=== PATIENT | female | born 1985 | race Asian ===

== ENCOUNTER 2018-01-18 04:34 | Inpatient (IN) | payer BC, OTHER ==
[~2018-01-18] VITALS: Ht 149.9 cm; Wt 49.9 kg
[2018-01-18 21:00] VITALS: BP 173/99
[2018-01-19] VITALS: BP 159/92
[2018-01-19] MEDS ORDERED: Norco 5mg/325mg tab ORAL PRN (00:15)
[2018-01-19 08:00] VITALS: BP 167/104
[2018-01-19 08:41] LABS: INR 0.9 (0.9-1.1)
[2018-01-19 08:47] LABS: HEMATOCRIT 22.6 % (37.0-47.0); HEMOGLOBIN 7.7 G/DL (12.0-16.0); MEAN CORPUSCULAR VOLUME 85 FL (80-99); PLATELET COUNT 145 K/UL (150-450); RED BLOOD COUNT 2.67 M/UL (4.20-5.40); WHITE BLOOD COUNT 9.2 K/UL (4.8-10.8)
[2018-01-19 08:56] LABS: PHOSPHORUS 6.4 MG/DL (2.5-4.9)
[2018-01-19] MEDS ORDERED: Lisinopril 2.5mg tab ORAL SCH (09:00)
[2018-01-19] MEDS ORDERED: Furosemide 40mg tab ORAL SCH (09:00)
[2018-01-19] MEDS: dilTIAZem HCl CD 240mg cap ORAL SCH (09:25)
[2018-01-19] MEDS ORDERED: LISINOPRIL5 MG ORAL (11:43)
[2018-01-19] MEDS ORDERED: CARTIA XT240 MG ORAL (11:43)
[2018-01-19] MEDS ORDERED: COREG3.125 MG ORAL (11:43)
[2018-01-19] MEDS ORDERED: FUROSEMIDE40 MG ORAL (11:43)
[2018-01-19] MEDS ORDERED: MYFORTIC360 MG PO (11:43)
[2018-01-19] MEDS ORDERED: PLAQUENIL200 MG ORAL (11:43)
--- NOTE | 2018-01-19 11:50 | History & Physical ---
History and Physical History & Physicial Dictated for Int Med-Dr Skelton no. [id number]. JUVE DUBOIS Jan 19, 2018 11:50
[2018-01-19 12:00] VITALS: BP_SYST 110; BP_SYST 175; BP_DIAS 104; BP_DIAS 110
--- NOTE | 2018-01-19 15:10 | Consultation ---
Consult Note Consult Note 32 y old lupus nephritis CKD transferred from [place] [id number] Cr 3.6 Hgb 7.4 after one unit transfusion in [place] Assessment/Plan likely acute on chronic renal failure Plan: long discussion with patient and boy friend due second Unit transfusion waiting today labs aim to stablize Hgb and Renal function discussed with ITZ ARNETT Jan 19, 2018 15:10
[2018-01-19] MEDS ORDERED: HydrALAZINE 25mg tab ORAL PRN (15:15)
[2018-01-19 15:37] LABS: PHOSPHORUS 6.7 MG/DL (2.5-4.9)
[2018-01-19 15:54] LABS: HEMATOCRIT 20.7 % (37.0-47.0); MEAN CORPUSCULAR VOLUME 83 FL (80-99); PLATELET COUNT 136 K/UL (150-450); RED BLOOD COUNT 2.48 M/UL (4.20-5.40); RED CELL DISTRIBUTION WIDTH 14.4 % (11.6-14.8); WHITE BLOOD COUNT 6.2 K/UL (4.8-10.8)
[2018-01-19 16:00] VITALS: BP 163/100
[2018-01-19 16:08] LABS: ANION GAP 10 mmol/L (5-15); BLOOD UREA NITROGEN 91 mg/dL (7-18); CARBON DIOXIDE 16 MMOL/L (21-32); CHLORIDE 112 MMOL/L (98-107); CREATININE 4.3 MG/DL (0.55-1.30); POTASSIUM 5.6 MMOL/L (3.5-5.1); SODIUM 138 MMOL/L (136-145)
[2018-01-19 16:23] LABS: ALANINE AMINOTRANSFERASE 10 U/L (12-78); ALBUMIN 2.2 G/DL (3.4-5.0); ALBUMIN/GLOBULIN RATIO 0.7 (1.0-2.7); ALKALINE PHOSPHATASE 65 U/L (46-116); ASPARTATE AMINO TRANSFERASE 14 U/L (15-37); BILIRUBIN,TOTAL 0.2 MG/DL (0.2-1.0); FERRITIN 150 NG/ML (8-388); LACTATE DEHYDROGENASE 271 U/L (81-234)
--- NOTE | 2018-01-19 16:44 | Cardiac Electrophysiology PN ---
Subjective Subjective [id number] Objective Last 24 Hour Vital Signs Date Time Temp Pulse Resp B/P (MAP) Pulse Ox O2 Delivery O2 Flow Rate FiO2 01/19/18 12:00 97.8 73 20 110/104 97 Room Air 97.8 01/19/18 09:25 74 167/104 01/19/18 09:24 167/104 01/19/18 08:00 97.7 74 20 167/104 97 Room Air 97.7 01/19/18 08:00 77 01/19/18 04:00 76 01/19/18 00:00 70 01/19/18 00:00 98.2 90 18 159/92 96 Room Air 98.2 01/18/18 21:00 82 01/18/18 21:00 98.4 89 20 173/99 98 Room Air 98.4 Intake and Output 01/18/18 01/19/18 19:00 07:00 Intake Total 100 ml Balance 100 ml Intake Oral 100 ml Laboratory Tests Test 01/19/18 06:50 01/19/18 15:30 White Blood Count 9.2 K/UL (4.8-10.8) 6.2 K/UL (4.8-10.8) Red Blood Count 2.67 M/UL (4.20-5.40) L 2.48 M/UL (4.20-5.40) L Hemoglobin 7.7 G/DL (12.0-16.0) L 7.0 G/DL (12.0-16.0) L Hematocrit 22.6 % (37.0-47.0) L 20.7 % (37.0-47.0) L Mean Corpuscular Volume 85 FL (80-99) 83 FL (80-99) Mean Corpuscular Hemoglobin 28.9 PG (27.0-31.0) 28.0 PG (27.0-31.0) Mean Corpuscular Hemoglobin Concent 34.2 G/DL (32.0-36.0) 33.6 G/DL (32.0-36.0) Red Cell Distribution Width 13.0 % (11.6-14.8) 14.4 % (11.6-14.8) Platelet Count 145 K/UL (150-450) L 136 K/UL (150-450) L Mean Platelet Volume 5.3 FL (6.5-10.1) L 5.1 FL (6.5-10.1) L Neutrophils (%) (Auto) % (45.0-75.0) % (45.0-75.0) Lymphocytes (%) (Auto) % (20.0-45.0) % (20.0-45.0) Monocytes (%) (Auto) % (1.0-10.0) % (1.0-10.0) Eosinophils (%) (Auto) % (0.0-3.0) % (0.0-3.0) Basophils (%) (Auto) % (0.0-2.0) % (0.0-2.0) Differential Total Cells Counted 100 Neutrophils % (Manual) 69 % (45-75) Lymphocytes % (Manual) 16 % (20-45) L Monocytes % (Manual) 8 % (1-10) Eosinophils % (Manual) 7 % (0-3) H Basophils % (Manual) 0 % (0-2) Band Neutrophils 0 % (0-8) Platelet Estimate Decreased L Platelet Morphology Normal Hypochromasia 1+ Anisocytosis 1+ Haptoglobin Pending Prothrombin Time 9.4 SEC (9.30-11.50) Prothromb Time International Ratio 0.9 (0.9-1.1) Activated Partial Thromboplast Time 28 SEC (23-33) Fibrinogen Pending D-Dimer 2.35 mg/L FEU (0.00-0.49) H Uric Acid 9.6 MG/DL (2.6-7.2) H 9.7 MG/DL (2.6-7.2) H Phosphorus Level 6.7 MG/DL (2.5-4.9) H Magnesium Level 2.7 MG/DL (1.8-2.4) H Iron Level Pending Unsaturated Iron Binding Pending Soluble Transferrin Receptor Pending Troponin I 0.104 ng/mL (0.000-0.056) Pro-B-Type Natriuretic Peptide 4607 pg/mL (0-125) H Methylmalonic Acid Pending Hepatitis A IgM Antibody Pending Hepatitis B Surface Antigen Pending Hepatitis B Core IgM Antibody Pending Hepatitis C Antibody Pending HIV (1&2) Antibody Rapid Negative (NEGATIVE) Reticulocyte Count Pending Sodium Level 138 MMOL/L (136-145) Potassium Level 5.6 MMOL/L (3.5-5.1) H Chloride Level 112 MMOL/L (98-107) H Carbon Dioxide Level 16 MMOL/L (21-32) L Anion Gap 10 mmol/L (5-15) Blood Urea Nitrogen 91 mg/dL (7-18) H Creatinine 4.3 MG/DL (0.55-1.30) H Estimat Glomerular Filtration Rate 11.8 mL/min (>60) Glucose Level 102 MG/DL (74-106) Calcium Level 7.0 MG/DL (8.5-10.1) L Ferritin 150 NG/ML (8-388) Total Bilirubin 0.2 MG/DL (0.2-1.0) Aspartate Amino Transf (AST/SGOT) 14 U/L (15-37) L Alanine Aminotransferase (ALT/SGPT) 10 U/L (12-78) L Alkaline Phosphatase 65 U/L (46-116) Lactate Dehydrogenase 271 U/L (81-234) H Total Protein 5.4 G/DL (6.4-8.2) L Albumin 2.2 G/DL (3.4-5.0) L Globulin 3.2 g/dL Albumin/Globulin Ratio 0.7 (1.0-2.7) L Vitamin B12 Level 437 PG/ML (193-986) Folate 12.5 NG/ML (8.6-58.9) Thyroid Stimulating Hormone (TSH) 2.482 uiU/mL (0.358-3.740) CASIE CABRAL Jan 19, 2018 16:43
[2018-01-19 16:51] LABS: % IRON SATURATION 22 % (15-50); IRON 35 ug/dL (50-175); TOTAL IRON BINDING CAPACITY 162 ug/dL (250-450)
[2018-01-19 16:53] LABS: APPEARANCE,URINE CLEAR; BILIRUBIN, URINE NEGATIVE (NEGATIVE); COLOR,URINE PALE YELLOW; GLUCOSE, URINE (UA) NEGATIVE (NEGATIVE); KETONES,URINE NEGATIVE (NEGATIVE); LEUKOCYTE ESTERASE ,URINE NEGATIVE (NEGATIVE); NITRITE,URINE NEGATIVE (NEGATIVE); PH,URINE 5 (4.5-8.0); PROTEIN,URINE 4+ (NEGATIVE); UROBILINOGEN,URINE NORMAL MG/DL (0.0-1.0)
[2018-01-19 17:01] VITALS: BP 163/100
--- NOTE | 2018-01-19 17:31 | History and Physical Report ---
DATE OF ADMISSION: 01/18/2018 CHIEF COMPLAINT: The patient is a 32-year-old female with history of systemic lupus erythematosus who presents with chief complaint of "low blood count". HISTORY OF PRESENT ILLNESS: The patient has a history of systemic lupus. The patient has a history of anemia. 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 According to the patient, she has felt increased shortness of breath over the last three weeks. The patient presented to [facility] on 01/18/2018. The patient was found to have hemoglobin of 5. The patient left against medical advice because "I did not feel right there." The patient then went to [facility]. Upon arrival at [facility], the patient was found to have hemoglobin of 5 and a potassium of 7. The patient was given Kayexalate. 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 The patient was transfused one unit of packed RBCs at [facility]. The patient was transferred to [facility] for insurance purposes. The patient was admitted for severe anemia to rule out autoimmune hemolytic anemia. The patient was also admitted with hyperkalemia. PAST MEDICAL HISTORY: Significant for 1. Systemic lupus erythematosus. 2. Hypertension. 3. Anemia. 4. History of renal failure. 5. Transfusion of packed RBCs x2 in the past. PAST SURGICAL HISTORY: The patient denies. CURRENT MEDICATIONS: 1. Iron sulfate 325 mg p.o. daily. 2. Lisinopril 5 mg p.o. daily. 3. Lasix 40 mg p.o. daily. 4. Coreg 12.5 mg p.o. twice daily. 5. Plaquenil 200 mg p.o. twice daily. 6. Diltiazem 240 mg p.o. daily. 7. Myfortic 360 mg two tablets p.o. twice daily. 8. . ALLERGIES: Vicodin, which causes nausea. SOCIAL HISTORY: The patient has a long time male partner. The patient denies tobacco or alcohol use. The patient is currently unemployed and is applying for disability. REVIEW OF SYSTEMS: CONSTITUTIONAL: The patient denies weight loss or weight gain. The patient denies fevers or chills. HEENT: The patient denies ear or throat pain. The patient denies headache. CARDIOVASCULAR: The patient denies palpitations or chest pain. CHEST: The patient denies wheezes. The patient complains of shortness of breath as above. ABDOMEN: The patient complains of increasing abdominal distention. The patient denies nausea, vomiting, diarrhea, or constipation. GENITOURINARY: The patient denies dysuria or increased frequency of urination. NEUROMUSCULAR: The patient denies seizures or generalized weakness. PHYSICAL EXAMINATION: GENERAL: The patient is well-developed and well-nourished female, no apparent distress. VITAL SIGNS: Temperature 97.7 to 98.4 degrees, respirations 20, pulse 82 to 90, and blood pressure 159 to 173 over 90 to 104. HEENT: Eyes, pupils are equal and responsive to light and accommodation. Extraocular movements are intact. NECK: Supple without lymphadenopathy. CHEST: Lungs are clear to auscultation bilaterally without wheezes or rales. CARDIOVASCULAR: Regular rhythm and rate. S1 and S2 normal without murmurs, rubs, or gallops. ABDOMEN: Soft, slightly distended with positive bowel sounds. No evidence of hepatosplenomegaly. Currently, no rebound or guarding noted. There is no fluid wave noted. EXTREMITIES: Negative for clubbing, cyanosis, or edema. NEUROLOGIC: Cranial nerves II through XII are grossly intact without focal deficits. Motor strength is 5/5 bilaterally. Deep tendon reflexes are 2+ plantar. LABORATORY AND DIAGNOSTIC DATA: Laboratory studies from [place], WBC 6.4, hemoglobin 5.3, hematocrit 15.7, and platelets 182,000. Sodium 133, potassium 6.0, chloride 113, CO2 13, BUN 86, creatinine 3.67, and glucose 117. Liver function tests within normal limits. Chest x-ray from [place] was reported as no acute disease. ASSESSMENT: This is a 32-year-old female 1. Shortness of breath. 2. Anemia. 3. Hyperkalemia. 4. Systemic lupus erythematosus. 5. Hypertension. 6. Acute on chronic renal failure. TREATMENT: 1. Shortness of breath/anemia. A Hematology/Oncology consultation obtained with Dr. Street. The patient received one unit of packed RBCs at [place]. A second unit of packed RBCs is currently being processed in the laboratory. The patient has a difficult match. The patient has history of alloantibodies. 2. Systemic lupus erythematosus. Continue Myfortic as above. 3. Hyperkalemia. The patient received Kayexalate at [place]. A repeat BMP is pending. 4. Hypertension. Continue Prinivil and carvedilol as above. Continue diltiazem as above. 5. Systemic lupus erythematosus. Continue 6. Renal failure. A Nephrology consultation has been obtained with Dr. Garnett. This may be secondary to lupus nephritis. Lv Murillo M.D. DR: CAPRI JOB#: [id number] CC:
[2018-01-19 20:00] VITALS: BP 168/100
[2018-01-19] MEDS ORDERED: Sodium Polystyrene Sulfonate 15gm Powder ORAL ONE (20:30)
[2018-01-19] MEDS ORDERED: Carvedilol 12.5mg tab ORAL SCH (21:00)
--- NOTE | 2018-01-20 00:31 | Consultation ---
DATE OF CONSULTATION: 01/19/2018 HEMATOLOGY/ONCOLOGY CONSULTATION CONSULTING PHYSICIAN: Agapito Street M.D. REQUESTING PHYSICIAN: Lv Murillo M.D. REASON FOR CONSULTATION: Evaluation of severe anemia, leukopenia, and anemia. IDENTIFYING DATA: Dear Dr. Murillo, The patient is a pleasant 32-year-old female who is a direct admission from [facility] due to hemoglobin History and Physical is to follow. ASSESSMENT AND RECOMMENDATIONS: 1. Anemia of chronic disease. Obtain anemia workup, B12 and folic acid, TSH, transferrin, TIBC. Hemoglobin goal above 7. 2. Leukopenia. Obtain hepatitis panel and HIV as well as ultrasound of the abdomen to rule out hepatosplenomegaly with cirrhosis. 3. Elevated troponin. Closely monitor. Consider Cardiology evaluation. 4. Thrombocytopenia. Again, consider hepatitis panel and HIV and abdominal ultrasound. 5. Hypomagnesemia as well as hyperphosphatemia. Obtain BMP. Check the patient's creatinine to see if there is any evidence of kidney disease. 6. Elevated D-dimer, potentially due to creatinine elevation. Continue to obtain BMP. 7. Hypertension, currently is on Coreg. Continue every 12 hours as needed. 8. Elevated lupus, currently is on Plaquenil as well as Myfortic. Continue to monitor. explain thrombocytopenia as well as anemia. 9. Appreciate consultation. Agapito Street M.D. DR: MATEO JOB#: [id number] CC:
--- NOTE | 2018-01-20 05:09 | Consultation ---
DATE OF CONSULTATION: 01/19/2018 NOTE: POOR AUDIO CARDIOLOGY CONSULTATION CONSULTING PHYSICIAN: Alfred Kennedy M.D. REFERRING PHYSICIAN: Hamzah Skelton M.D. REASON FOR CONSULTATION: Accelerated hypertension. HISTORY OF PRESENT ILLNESS: The patient is a 32-year-old lady with history of systemic lupus erythematosus, on CellCept and Plaquenil as well as hypertension and anemia, presented to the ER at [facility] with weakness and shortness of breath and was found to have severe anemia with suspected autoimmune hemolysis. The patient's creatinine 3.5 and 3.6. The patient was then transferred from [place] to [facility] as the patient is not a [place] member. The patient's blood pressure was as high as 190s and a Cardiology consultation was obtained for further evaluation. PAST MEDICAL HISTORY: 1. Hypertension. 2. Systemic lupus erythematosus. 3. Anemia. FAMILY HISTORY: Noncontributory. SOCIAL HISTORY: She lives at home. Does not smoke or drink alcohol. REVIEW OF SYSTEMS: Performed and was negative other than what was mentioned in the history of present illness. PHYSICAL EXAMINATION: VITAL SIGNS: Blood pressure 160/104, pulse 73, respirations 18, and temperature 97.8. HEAD AND NECK: Showed no JVD. LUNGS: Clear. CARDIOVASCULAR: Shows regular S1 and S2 with no gallop or murmur. ABDOMEN: Soft and nontender. EXTREMITIES: No pitting edema. LABORATORY DATA: Her labs show white count of 6.2, hemoglobin 7, hematocrit 20, and platelet count is 136. Sodium is 138, potassium is 5.6, BUN of 91, creatinine 4.3, and glucose of 102. Calcium is 7. Troponin is 0.104. Previous troponin was . BNP is 4607. ASSESSMENT AND PLAN: 1. Troponin leak. This is likely due to the patient's renal failure and severe anemia. The patient does not have any chest pain or shortness of breath. Continue to treat the patient medically. Coreg ____ increased the dose to 6.25 mg b.i.d. The patient is also on Cardizem CD 240 mg daily and lisinopril 20 mg daily. 2. Accelerated hypertension, likely due to renal failure. Again increase the Coreg, continue hydralazine and continue Cardizem 240 mg daily and lisinopril 20 mg daily. I will add p.r.n. hydralazine to her medical regimen. An echocardiogram will also be ordered for further evaluation and management. 3. Hyperkalemia due to renal failure. 4. Renal failure. Further evaluation by Dr. Garnett. The patient has never been on dialysis. 5. Severe anemia. The patient received one unit of blood transfusion second unit as the patient has probably autoimmune anemia. Thank you very much Dr. Skelton for allowing me to participate in the care of this patient. Please do not hesitate to contact for any questions regarding my evaluation. Alfred Kennedy M.D. DR: LINDSAY JOB#: [id number] CC:
[2018-01-20 08:00] VITALS: BP 186/113
[2018-01-20 08:47] LABS: HEMATOCRIT 20.7 % (37.0-47.0); MEAN CORPUSCULAR VOLUME 84 FL (80-99); PLATELET COUNT 127 K/UL (150-450); RED BLOOD COUNT 2.46 M/UL (4.20-5.40); RED CELL DISTRIBUTION WIDTH 13.6 % (11.6-14.8); WHITE BLOOD COUNT 7.7 K/UL (4.8-10.8)
[2018-01-20 08:56] LABS: HEMOGLOBIN 6.9 G/DL (12.0-16.0)
[2018-01-20 09:07] LABS: ANION GAP 12 mmol/L (5-15); BLOOD UREA NITROGEN 93 mg/dL (7-18); CALCIUM 6.9 MG/DL (8.5-10.1); CARBON DIOXIDE 14 MMOL/L (21-32); CHLORIDE 111 MMOL/L (98-107); CHOLESTEROL 186 MG/DL (< 200); CREATININE 4.2 MG/DL (0.55-1.30); HDL CHOLESTEROL 49 MG/DL (40-60); POTASSIUM 5.7 MMOL/L (3.5-5.1); SODIUM 137 MMOL/L (136-145); TRIGLYCERIDES 142 MG/DL (30-150)
[2018-01-20 09:10] LABS: CKMB < 0.5 NG/ML (0.0-3.6); CREATINE KINASE 39 U/L (26-308)
[2018-01-20] MEDS: dilTIAZem HCl CD 240mg cap ORAL SCH (09:38)
[2018-01-20] MEDS ORDERED: HydrALAZINE 50mg tab ORAL SCH (10:00)
[2018-01-20] MEDS: Carvedilol 25mg Tab ORAL SCH ×2 (10:25→20:21)
[2018-01-20] MEDS ORDERED: Sodium Polystyrene Sulfonate 15gm Powder ORAL ONE (10:30)
--- NOTE | 2018-01-20 11:27 | Diagnostic Imaging Report ---
Indication: Abnormal liver function tests and renal function tests, hyperkalemia Technique: Pendleton-scale and duplex images of the upper abdomen were obtained Comparison: none Findings: There is a small amount of ascites fluid present. There are bilateral pleural effusions. Gallbladder demonstrates 2 or 3 nonmobile mural protrusions which probably represent tiny polyps. No definite gallstones. No wall thickening nor pericholecystic fluid. Sonographic Cardoza's sign is negative. Common bile duct measures 3 mm in diameter. No intrahepatic biliary ductal dilatation. Liver demonstrates normal echogenicity, no focal abnormality. Portal vein and hepatic veins are patent. Pancreas is unremarkable. Spleen demonstrates calcifications, and is otherwise unremarkable. Left kidney measures 11 cm in length. Right kidney measures 13 cm length. Both kidneys demonstrate mildly increased echogenicity. Since there is no hydronephrosis on the right. There is mild fullness to the left renal collecting system. There is a tiny right renal cyst in the upper pole. The bladder contains a small amount of urine. Non-aneurysmal abdominal aorta . Impression: Small gallbladder polyps. 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
[2018-01-20 12:00] VITALS: BP 192/114
[2018-01-20] MEDS: Docusate 100mg cap ORAL SCH ×2 (13:00→17:49)
[2018-01-20] MEDS: cloNIDine 0.2mg Tab ORAL PRN ×2 (14:23→19:02)
--- NOTE | 2018-01-20 14:56 | Cardiac Electrophysiology PN ---
Assessment/Plan Assessment/Plan 1. Troponin leak. This is likely due to the patient's renal failure and severe anemia. The patient does not have any chest pain or shortness of breath. Continue Coreg 25 mg b.i.d. and Cardizem CD 240 mg daily 2. Accelerated hypertension, likely due to renal failure. Coreg increased to 25 bid, hydralazine DCed for possible allergy per pt. On Cardizem 240 mg daily and start Clonidine 0.2 tid. Echocardiogram still pending. DC Amlodipine as patient already on Cardizem 3. Hyperkalemia due to renal failure.Lisinopril was DCed 4. Renal failure. Further evaluation by Dr. Garnett. 5. Severe anemia. The patient received one unit of blood transfusion DW RN boyfriend at bedside. Subjective Subjective Feeling better. BP was high earlier.Refusing Hydralazine. Objective Last 24 Hour Vital Signs Date Time Temp Pulse Resp B/P (MAP) Pulse Ox O2 Delivery O2 Flow Rate FiO2 01/20/18 14:23 197/115 01/20/18 12:00 86 01/20/18 12:00 97.7 80 18 192/114 97 Room Air 97.7 01/20/18 10:25 81 186/113 01/20/18 10:00 186/113 01/20/18 09:38 81 186/113 01/20/18 08:00 71 01/20/18 08:00 96.6 81 18 186/113 96 Room Air 96.6 01/20/18 04:00 66 01/20/18 00:00 75 01/19/18 21:16 86 163/100 01/19/18 20:00 78 01/19/18 20:00 97.9 84 20 168/100 98 Room Air 97.9 01/19/18 16:00 86 01/19/18 16:00 97.6 72 18 163/100 100 Room Air 97.6 Intake and Output 01/19/18 01/20/18 19:00 07:00 Intake Total 480 ml Balance 480 ml Intake Oral 480 ml # Voids 3 Laboratory Tests Test 01/19/18 15:30 01/19/18 16:00 01/20/18 07:50 01/20/18 09:30 White Blood Count 6.2 K/UL (4.8-10.8) 7.7 K/UL (4.8-10.8) Red Blood Count 2.48 M/UL (4.20-5.40) L 2.46 M/UL (4.20-5.40) L Hemoglobin 7.0 G/DL (12.0-16.0) L 6.9 G/DL (12.0-16.0) *L Hematocrit 20.7 % (37.0-47.0) L 20.7 % (37.0-47.0) L Mean Corpuscular Volume 83 FL (80-99) 84 FL (80-99) Mean Corpuscular Hemoglobin 28.0 PG (27.0-31.0) 28.0 PG (27.0-31.0) Mean Corpuscular Hemoglobin Concent 33.6 G/DL (32.0-36.0) 33.3 G/DL (32.0-36.0) Red Cell Distribution Width 14.4 % (11.6-14.8) 13.6 % (11.6-14.8) Platelet Count 136 K/UL (150-450) L 127 K/UL (150-450) L Mean Platelet Volume 5.1 FL (6.5-10.1) L 5.9 FL (6.5-10.1) L Neutrophils (%) (Auto) % (45.0-75.0) % (45.0-75.0) Lymphocytes (%) (Auto) % (20.0-45.0) % (20.0-45.0) Monocytes (%) (Auto) % (1.0-10.0) % (1.0-10.0) Eosinophils (%) (Auto) % (0.0-3.0) % (0.0-3.0) Basophils (%) (Auto) % (0.0-2.0) % (0.0-2.0) Reticulocyte Count 2.2 % (0.0-2.0) H Fibrinogen 460 mg/dL (200-400) H Sodium Level 138 MMOL/L (136-145) 137 MMOL/L (136-145) Potassium Level 5.6 MMOL/L (3.5-5.1) H 5.7 MMOL/L (3.5-5.1) H Chloride Level 112 MMOL/L (98-107) H 111 MMOL/L (98-107) H Carbon Dioxide Level 16 MMOL/L (21-32) L 14 MMOL/L (21-32) L Anion Gap 10 mmol/L (5-15) 12 mmol/L (5-15) Blood Urea Nitrogen 91 mg/dL (7-18) H 93 mg/dL (7-18) H Creatinine 4.3 MG/DL (0.55-1.30) H 4.2 MG/DL (0.55-1.30) H Estimat Glomerular Filtration Rate 11.8 mL/min (>60) 12.1 mL/min (>60) Glucose Level 102 MG/DL (74-106) 85 MG/DL (74-106) Uric Acid 9.7 MG/DL (2.6-7.2) H Calcium Level 7.0 MG/DL (8.5-10.1) L 6.9 MG/DL (8.5-10.1) L Ferritin 150 NG/ML (8-388) Total Bilirubin 0.2 MG/DL (0.2-1.0) Aspartate Amino Transf (AST/SGOT) 14 U/L (15-37) L Alanine Aminotransferase (ALT/SGPT) 10 U/L (12-78) L Alkaline Phosphatase 65 U/L (46-116) Lactate Dehydrogenase 271 U/L (81-234) H Total Protein 5.4 G/DL (6.4-8.2) L Albumin 2.2 G/DL (3.4-5.0) L Globulin 3.2 g/dL Albumin/Globulin Ratio 0.7 (1.0-2.7) L Vitamin B12 Level 437 PG/ML (193-986) Folate 12.5 NG/ML (8.6-58.9) Thyroid Stimulating Hormone (TSH) 2.482 uiU/mL (0.358-3.740) 3.579 uiU/mL (0.358-3.740) Urine Color Pale yellow Urine Appearance Clear Urine pH 5 (4.5-8.0) Urine Specific [place] 1.015 (1.005-1.035) Urine Protein 4+ (NEGATIVE) H Urine Glucose (UA) Negative (NEGATIVE) Urine Ketones Negative (NEGATIVE) Urine Occult Blood 4+ (NEGATIVE) H Urine Nitrite Negative (NEGATIVE) Urine Bilirubin Negative (NEGATIVE) Urine Urobilinogen Normal MG/DL (0.0-1.0) Urine Leukocyte Esterase Negative (NEGATIVE) Urine RBC 2-4 /HPF (0 - 2) H Urine WBC 0-2 /HPF (0 - 2) Urine Squamous Epithelial Cells Few /LPF (NONE/OCC) Urine Bacteria Few /HPF (NONE) Urine Random Sodium 26 mmol/L (20-110) Differential Total Cells Counted 100 Neutrophils % (Manual) 66 % (45-75) Lymphocytes % (Manual) 23 % (20-45) Monocytes % (Manual) 5 % (1-10) Eosinophils % (Manual) 5 % (0-3) H Basophils % (Manual) 1 % (0-2) Band Neutrophils 0 % (0-8) Platelet Estimate Decreased L Platelet Morphology Normal Hypochromasia 1+ Total Creatine Kinase 39 U/L (26-308) Creatine Kinase MB < 0.5 NG/ML (0.0-3.6) Creatine Kinase MB Relative Index Troponin I 0.094 ng/mL (0.000-0.056) Pro-B-Type Natriuretic Peptide 4367 pg/mL (0-125) H Triglycerides Level 142 MG/DL (30-150) Cholesterol Level 186 MG/DL (< 200) LDL Cholesterol 78 mg/dL (<100) HDL Cholesterol 49 MG/DL (40-60) Cholesterol/HDL Ratio 3.8 (3.3-4.4) Urine Eosinophils Few Stool Occult Blood Negative (NEGATIVE) Objective HEAD AND NECK: Showed no JVD. LUNGS: Clear. CARDIOVASCULAR: Shows regular S1 and S2 with no gallop or murmur. ABDOMEN: Soft and nontender. EXTREMITIES: No pitting edema. Alfred Kennedy MD Jan 20, 2018 14:56
[2018-01-20 16:00] VITALS: BP 168/106
--- NOTE | 2018-01-20 16:35 | Nephrology Progress Note ---
Assessment/Plan Problem List: (1) Severe anemia (2) Renal failure Assessment: likely acute on chronic (3) Elevated troponin (4) Hyperkalemia (5) Systemic lupus erythematosus Assessment patient weak and pale- BP OOC Refused Hydralazine and took Clonidine due for blood transfusion has not taken her Kayexelate fully Boy freind at the bed side asking for steroid treatment I am not sure if an active lupus relaps and nephritis is going on UA not Nephritic ! . Plan discussed with Laura Murillo and Sammy suggest: Rheumatology eval- second Renal opinion- monitor renal parameters check CRP Keep BP and BS in check start IV Iron and SQ EPO after transfusion biopsy results from CS discussed with patient and Bot Friend and RN Subjective ROS Limited/Unobtainable: No Constitutional: Reports: malaise, other - complains of swelling around belly and bloating Objective Objective Last 24 Hour Vital Signs Date Time Temp Pulse Resp B/P (MAP) Pulse Ox O2 Delivery O2 Flow Rate FiO2 01/20/18 14:23 197/115 01/20/18 12:00 86 01/20/18 12:00 97.7 80 18 192/114 97 Room Air 97.7 01/20/18 10:25 81 186/113 01/20/18 10:00 186/113 01/20/18 09:38 81 186/113 01/20/18 08:00 71 01/20/18 08:00 96.6 81 18 186/113 96 Room Air 96.6 01/20/18 04:00 66 01/20/18 00:00 75 01/19/18 21:16 86 163/100 01/19/18 20:00 78 01/19/18 20:00 97.9 84 20 168/100 98 Room Air 97.9 Intake and Output 01/19/18 01/20/18 19:00 07:00 Intake Total 480 ml Balance 480 ml Intake Oral 480 ml # Voids 3 Current Medications Medications (Trade) Dose Ordered Sig/Gisella Route PRN Reason Start Time Stop Time Status Last Admin Dose Admin Acetaminophen (Tylenol) 650 mg Q6H PRN ORAL Mild Pain/Temp > 100.5 01/19/18 00:15 02/18/18 00:14 Acetaminophen/ Hydrocodone Bitart ([place] 5/325) 1 tab Q6H PRN ORAL Moderate Pain (Pain Scale 4-6) 01/19/18 00:15 01/26/18 00:14 Carvedilol (Coreg) 25 mg EVERY 12 HOURS ORAL 01/20/18 10:00 02/19/18 09:59 01/20/18 10:25 Clonidine HCl (Catapres tab) 0.2 mg EVERY 8 HOURS ORAL 01/20/18 22:00 02/19/18 21:59 Clonidine HCl (Catapres tab) 0.2 mg Q2H PRN ORAL SBP>170 01/20/18 13:00 02/19/18 12:59 01/20/18 14:23 Diltiazem HCl (Cardizem CD) 240 mg DAILY ORAL 01/19/18 09:00 02/18/18 08:59 01/20/18 09:38 Docusate Sodium (Colace) 100 mg THREE TIMES A DAY ORAL 01/20/18 13:00 02/19/18 12:59 Hydroxychloroquine Sulfate (Plaquenil) 200 mg TWICE A DAY ORAL 01/19/18 09:00 02/18/18 08:59 01/20/18 09:38 Ondansetron HCl (Zofran) 4 mg Q4HR PRN IVP Nausea & Vomiting 01/19/18 00:15 02/18/18 00:14 Laboratory Tests 01/20/18 07:50: White Blood Count 7.7, Red Blood Count 2.46L, Hemoglobin 6.9*L, Hematocrit 20.7L , Mean Corpuscular Volume 84, Mean Corpuscular Hemoglobin 28.0, Mean Corpuscular Hemoglobin Concent 33.3, Red Cell Distribution Width 13.6, Platelet Count 127L, Mean Platelet Volume 5.9L, Neutrophils (%) (Auto) , Lymphocytes (%) (Auto) , Monocytes (%) (Auto) , Eosinophils (%) (Auto) , Basophils (%) (Auto) , Differential Total Cells Counted 100, Neutrophils % (Manual) 66, Lymphocytes % ( Manual) 23, Monocytes % (Manual) 5, Eosinophils % (Manual) 5H, Basophils % ( Manual) 1, Band Neutrophils 0, Platelet Estimate DecreasedL, Platelet Morphology Normal, Hypochromasia 1+, Sodium Level 137, Potassium Level 5.7H, Chloride Level 111H, Carbon Dioxide Level 14L, Anion Gap 12, Blood Urea Nitrogen 93H, Creatinine 4.2H, Estimat Glomerular Filtration Rate 12.1, Glucose Level 85, Calcium Level 6.9L, Total Creatine Kinase 39, Creatine Kinase MB < 0.5 , Creatine Kinase MB Relative Index , Troponin I 0.094H, Pro-B-Type Natriuretic Peptide 4367H, Triglycerides Level 142, Cholesterol Level 186, LDL Cholesterol 78, HDL Cholesterol 49, Cholesterol/HDL Ratio 3.8, Thyroid Stimulating Hormone ( TSH) 3.579 01/20/18 09:30: Urine Eosinophils Few, Stool Occult Blood Negative Height (Feet): 4 Height (Inches): 11.00 Weight (Pounds): 110 General Appearance: no apparent distress, lethargic, other - pale Cardiovascular: normal rate Respiratory/Chest: decreased breath sounds Abdomen: soft ITZ TAVAREZ Jan 20, 2018 16:35
--- NOTE | 2018-01-20 16:57 | Internal Med Progress Note ---
Subjective Date of Service: Jan 20, 2018 Physician Name Lv Dubois Attending Physician Hamzah Skelton MD Current Medications Medications (Trade) Dose Ordered Sig/Gisella Route PRN Reason Start Time Stop Time Status Last Admin Dose Admin Acetaminophen (Tylenol) 650 mg Q6H PRN ORAL Mild Pain/Temp > 100.5 01/19/18 00:15 02/18/18 00:14 Acetaminophen/ Hydrocodone Bitart ([place] 5/325) 1 tab Q6H PRN ORAL Moderate Pain (Pain Scale 4-6) 01/19/18 00:15 01/26/18 00:14 Carvedilol (Coreg) 25 mg EVERY 12 HOURS ORAL 01/20/18 10:00 02/19/18 09:59 01/20/18 10:25 Clonidine HCl (Catapres tab) 0.2 mg EVERY 8 HOURS ORAL 01/20/18 22:00 02/19/18 21:59 Clonidine HCl (Catapres tab) 0.2 mg Q2H PRN ORAL SBP>170 01/20/18 13:00 02/19/18 12:59 01/20/18 14:23 Diltiazem HCl (Cardizem CD) 240 mg DAILY ORAL 01/19/18 09:00 02/18/18 08:59 01/20/18 09:38 Docusate Sodium (Colace) 100 mg THREE TIMES A DAY ORAL 01/20/18 13:00 02/19/18 12:59 Hydroxychloroquine Sulfate (Plaquenil) 200 mg TWICE A DAY ORAL 01/19/18 09:00 02/18/18 08:59 01/20/18 09:38 Lansoprazole (Prevacid) 30 mg DAILY ORAL 01/20/18 17:15 02/19/18 17:14 Ondansetron HCl (Zofran) 4 mg Q4HR PRN IVP Nausea & Vomiting 01/19/18 00:15 02/18/18 00:14 Allergies: Coded Allergies: ACETAMINOPHEN (Verified Allergy, Unknown, 01/19/18) HYDROCODONE (Verified Allergy, Unknown, 01/19/18) ROS Limited/Unobtainable: No Constitutional: Reports: no symptoms HEENT: Reports: no symptoms Cardiovascular: Reports: no symptoms Respiratory: Reports: no symptoms Gastrointestinal/Abdominal: Reports: abdomen distended Genitourinary: Reports: no symptoms Neurologic/Psychiatric: Reports: no symptoms Subjective 32 YO F admitted with severe anemia and lupus flare. Cover for Int Med-Dr Skelton. Await rheumatology consult. Objective Last Vital Signs Date Time Temp Pulse Resp B/P (MAP) Pulse Ox O2 Delivery O2 Flow Rate FiO2 01/20/18 16:00 98.1 75 17 168/106 97 Room Air 98.1 General Appearance: WD/WN, no apparent distress, alert EENT: PERRL/EOMI, normal ENT inspection Neck: non-tender, normal alignment, supple, normal inspection Cardiovascular: normal peripheral pulses, normal rate, regular rhythm, no gallop/murmur, no JVD Respiratory/Chest: chest wall non-tender, lungs clear, normal breath sounds, no respiratory distress, no accessory muscle use Abdomen: normal bowel sounds, non tender, soft, no organomegaly, no mass Extremities: normal range of motion, non-tender Edema: trace edema 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0) Monocytes (%) (Auto) % (1.0-10.0) Eosinophils (%) (Auto) % (0.0-3.0) Basophils (%) (Auto) % (0.0-2.0) Differential Total Cells Counted 100 Neutrophils % (Manual) 66 % (45-75) Lymphocytes % (Manual) 23 % (20-45) Monocytes % (Manual) 5 % (1-10) Eosinophils % (Manual) 5 % (0-3) H Basophils % (Manual) 1 % (0-2) Band Neutrophils 0 % (0-8) Platelet Estimate Decreased L Platelet Morphology Normal Hypochromasia 1+ Sodium Level 137 MMOL/L (136-145) Potassium Level 5.7 MMOL/L (3.5-5.1) H Chloride Level 111 MMOL/L (98-107) H Carbon Dioxide Level 14 MMOL/L (21-32) L Anion Gap 12 mmol/L (5-15) Blood Urea Nitrogen 93 mg/dL (7-18) H Creatinine 4.2 MG/DL (0.55-1.30) H Estimat Glomerular Filtration Rate 12.1 mL/min (>60) Glucose Level 85 MG/DL (74-106) Calcium Level 6.9 MG/DL (8.5-10.1) L Total Creatine Kinase 39 U/L (26-308) Creatine Kinase MB < 0.5 NG/ML (0.0-3.6) Creatine Kinase MB Relative Index Troponin I 0.094 ng/mL (0.000-0.056) Pro-B-Type Natriuretic Peptide 4367 pg/mL (0-125) H Triglycerides Level 142 MG/DL (30-150) Cholesterol Level 186 MG/DL (< 200) LDL Cholesterol 78 mg/dL (<100) HDL Cholesterol 49 MG/DL (40-60) Cholesterol/HDL Ratio 3.8 (3.3-4.4) Thyroid Stimulating Hormone (TSH) 3.579 uiU/mL (0.358-3.740) Urine Eosinophils Few Stool Occult Blood Negative (NEGATIVE) Intake and Output 01/19/18 01/20/18 19:00 07:00 Intake Total 480 ml Balance 480 ml Intake Oral 480 ml # Voids 3 Assessment/Plan Problem List: (1) Hypertensive emergency Assessment & Plan: Patient refuses IV hydralazine. Continue coreg and diltiazem. Continue PRN clonidine. See cardiology note. (2) SOB (shortness of breath) (3) Ascites Assessment & Plan: Small amount. Await GI consult. (4) Systemic lupus erythematosus (5) Severe anemia Assessment & Plan: Transfuse 1 unit PRBC today (6) Elevated troponin Assessment & Plan: Due to renal failure. See cardiology note. (7) Renal failure Assessment & Plan: Await 2nd nephrology consult ?IV solumedrol? (8) Hyperkalemia Status: not improved LV DUBOIS Jan 20, 2018 16:57
[2018-01-20 20:00] VITALS: BP 170/112
[2018-01-20 21:08] VITALS: BP 186/105
[2018-01-20] MEDS: cloNIDine 0.2mg Tab ORAL SCH (22:12)
[2018-01-21] VITALS (8 sets, daily range): BP systolic 116–205; BP diastolic 71–118
[2018-01-21] MEDS: cloNIDine 0.2mg Tab ORAL SCH (05:39)
[2018-01-21] MEDS: Docusate 100mg cap ORAL SCH ×3 (09:27→18:00)
[2018-01-21] MEDS: dilTIAZem HCl CD 240mg cap ORAL SCH (09:27)
[2018-01-21] MEDS: cloNIDine 0.2mg Tab ORAL PRN (09:28)
[2018-01-21] MEDS: Carvedilol 25mg Tab ORAL SCH ×2 (09:28→21:40)
[2018-01-21 09:49] LABS: BASOPHILS % (AUTO) 1.6 % (0.0-2.0); EOSINOPHILS % (AUTO) 8.7 % (0.0-3.0); HEMATOCRIT 23.6 % (37.0-47.0); LYMPHOCYTES % (AUTO) 23.2 % (20.0-45.0); MEAN CORPUSCULAR VOLUME 83 FL (80-99); MONOCYTES % (AUTO) 10.2 % (1.0-10.0); NEUTROPHILS % (AUTO) 56.3 % (45.0-75.0); PLATELET COUNT 103 K/UL (150-450); RED BLOOD COUNT 2.85 M/UL (4.20-5.40); RED CELL DISTRIBUTION WIDTH 13.7 % (11.6-14.8); WHITE BLOOD COUNT 6.4 K/UL (4.8-10.8)
--- NOTE | 2018-01-21 10:42 | GI Initial Consult Note ---
History of Present Illness General Date patient seen: Jan 21, 2018 Time patient seen: 10:32 Referring physician: ROSALIO SCHILLING Reason for Consultation: ASCITES Present Illness HPI HISTORY OF PRESENT ILLNESS: The patient has a history of systemic lupus. The patient has a history of anemia. 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 According to the patient, she has felt increased shortness of breath over the last three weeks. The patient presented to [facility] on 01/18/2018. The patient was found to have hemoglobin of 5. The patient left against medical advice because "I did not feel right there." The patient then went to [facility]. Upon arrival at [facility], the patient was found to have hemoglobin of 5 and a potassium of 7. The patient was given Kayexalate. 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 The patient was transfused one unit of packed RBCs at [facility]. The patient was transferred to [facility] for insurance purposes. The patient was admitted for severe anemia to rule out autoimmune hemolytic anemia. The patient was also admitted with hyperkalemia. GI consulted for ascites as noted on abdominal U/S. Pt seen, awake A&Ox4 NAD with c/o of SOB during exertion, fatigue and weakness. She c/o of abdominal bloating after PO intake. Passing gas. Last BM yesterday x2. Abdomen is soft , has mild distention and is tympanic. Abdominal U/S reviewed to note bilateral pleural effusion in addition to the moderate ascites. She presents today with anemia and elevated troponin levels. No transaminitis or abnormal LFTs. No history of endoscopy / colonoscopy. PAST MEDICAL HISTORY: Significant for 1. Systemic lupus erythematosus. 2. Hypertension. 3. Anemia. 4. History of renal failure. 5. Transfusion of packed RBCs x2 in the past. PAST SURGICAL HISTORY: The patient denies. Home Meds Reported Medications Carvedilol (Coreg) 3.125 Mg Tablet, 3.125 MG ORAL EVERY 12 HOURS, TAB 01/19/18 Lisinopril (LISINOPRIL*) 5 Mg Tablet, 5 MG ORAL DAILY, TAB 01/19/18 Furosemide* (LASIX*) 40 Mg Tablet, 40 MG ORAL DAILY, TAB 01/19/18 Hydroxychloroquine Sulfate* (PLAQUENIL*) 200 Mg Tablet, 200 MG ORAL DAILY, #30 TAB 01/19/18 Mycophenolate Sodium (MYFORTIC) 360 Mg Tablet.dr, 360 MG PO, TAB 01/19/18 Diltiazem Hcl* (CARTIA XT*) 240 Mg Cap.er.24h, 240 MG ORAL DAILY, CAP 01/19/18 Med list reviewed/reconciled: Yes Allergies: Coded Allergies: ACETAMINOPHEN (Verified Allergy, Unknown, 01/19/18) HYDROCODONE (Verified Allergy, Unknown, 01/19/18) Patient History History Provided By: Patient, Medical Record Social History: Denies: smoking, alcohol use, drug use, other Review of Systems All Other Systems: negative except mentioned in HPI Physical Exam Vital Signs Date Time Temp Pulse Resp B/P (MAP) Pulse Ox O2 Delivery O2 Flow Rate FiO2 01/18/18 21:00 98.4 89 20 173/99 98 Room Air 98.4 Sp02 EP Interpretation: reviewed, normal Labs Laboratory Tests Test 01/21/18 00:36 01/21/18 06:25 Urine Eosinophils None seen White Blood Count 6.4 K/UL (4.8-10.8) Red Blood Count 2.85 M/UL (4.20-5.40) L Hemoglobin 8.0 G/DL (12.0-16.0) L Hematocrit 23.6 % (37.0-47.0) L Mean Corpuscular Volume 83 FL (80-99) Mean Corpuscular Hemoglobin 28.2 PG (27.0-31.0) Mean Corpuscular Hemoglobin Concent 33.9 G/DL (32.0-36.0) Red Cell Distribution Width 13.7 % (11.6-14.8) Platelet Count 103 K/UL (150-450) L Mean Platelet Volume 6.3 FL (6.5-10.1) L Neutrophils (%) (Auto) 56.3 % (45.0-75.0) Lymphocytes (%) (Auto) 23.2 % (20.0-45.0) Monocytes (%) (Auto) 10.2 % (1.0-10.0) H Eosinophils (%) (Auto) 8.7 % (0.0-3.0) H Basophils (%) (Auto) 1.6 % (0.0-2.0) Erythrocyte Sedimentation Rate Pending Sodium Level Pending Potassium Level Pending Chloride Level Pending Carbon Dioxide Level Pending Blood Urea Nitrogen Pending Creatinine Pending Estimat Glomerular Filtration Rate Pending Glucose Level Pending Hemoglobin A1c Pending Uric Acid Pending Calcium Level Pending Phosphorus Level Pending Magnesium Level Pending Total Bilirubin Pending Gamma Glutamyl Transpeptidase Pending Aspartate Amino Transf (AST/SGOT) Pending Alanine Aminotransferase (ALT/SGPT) Pending Alkaline Phosphatase Pending Troponin I Pending Pro-B-Type Natriuretic Peptide Pending Total Protein Pending Albumin Pending Globulin Pending Anti-Nuclear Antibody Screen Pending General Appearance: well appearing, no apparent distress, alert Head: normocephalic EENT: PERRL/EOMI, normal ENT inspection Neck: supple Respiratory: normal breath sounds, no respiratory distress Cardiovascular: normal rate Gastrointestinal: normal inspection, non tender, soft, normal bowel sounds, non -distended Rectal: deferred Genitourinary: no CVA tenderness Musculoskeletal: normal inspection, back normal Neurologic: normal inspection, alert, oriented x3, responsive Psychiatric: normal inspection, judgement/insight normal, memory normal Skin: normal inspection, normal color, no rash, warm/dry, palpation normal, well hydrated Lymphatic: normal inspection, no adenopathy Current Medications Current Medications Medications (Trade) Dose Ordered Sig/Gisella Route PRN Reason Start Time Stop Time Status Last Admin Dose Admin Acetaminophen (Tylenol) 650 mg Q6H PRN ORAL Mild Pain/Temp > 100.5 01/19/18 00:15 02/18/18 00:14 01/20/18 22:13 Acetaminophen/ Hydrocodone Bitart ([place] 5/325) 1 tab Q6H PRN ORAL Moderate Pain (Pain Scale 4-6) 01/19/18 00:15 01/26/18 00:14 Carvedilol (Coreg) 25 mg EVERY 12 HOURS ORAL 01/20/18 10:00 02/19/18 09:59 01/21/18 09:28 Clonidine HCl (Catapres tab) 0.2 mg EVERY 8 HOURS ORAL 01/20/18 22:00 02/19/18 21:59 01/21/18 05:39 Clonidine HCl (Catapres tab) 0.2 mg Q2H PRN ORAL SBP>170 01/20/18 13:00 02/19/18 12:59 01/21/18 09:28 Diltiazem HCl (Cardizem CD) 240 mg DAILY ORAL 01/19/18 09:00 02/18/18 08:59 01/21/18 09:27 Docusate Sodium (Colace) 100 mg THREE TIMES A DAY ORAL 01/20/18 13:00 02/19/18 12:59 01/21/18 09:27 Hydroxychloroquine Sulfate (Plaquenil) 200 mg TWICE A DAY ORAL 01/19/18 09:00 02/18/18 08:59 01/21/18 09:28 Lansoprazole (Prevacid) 30 mg DAILY ORAL 01/20/18 17:15 02/19/18 17:14 01/21/18 09:28 Ondansetron HCl (Zofran) 4 mg Q4HR PRN IVP Nausea & Vomiting 01/19/18 00:15 02/18/18 00:14 GI: Plan Problems: (1) Anemia (2) Ascites (3) SOB (shortness of breath) (4) Renal failure Plan elevated troponin levels anemia work up reviewed. abdominal U/S reviewed >> Trace ascites. Small bilateral pleural effusions. Increased bilateral renal echogenicity, may indicate medical renal disease. defer diuretics given renal failure defer paracentesis at this time renal diet with 2L fluid / sodium restriction simethicone prn prn transfusions fu nephro recs, labs Discussed with Dr. Graham. Thank you for this patient referral, we will follow. Jacinda Viramontes N.P. Jan 21, 2018 10:42
[2018-01-21 10:46] LABS: ALANINE AMINOTRANSFERASE 12 U/L (12-78); ALBUMIN 2.1 G/DL (3.4-5.0); ALBUMIN/GLOBULIN RATIO 0.7 (1.0-2.7); ALKALINE PHOSPHATASE 64 U/L (46-116); ANION GAP 15 mmol/L (5-15); ASPARTATE AMINO TRANSFERASE 17 U/L (15-37); BILIRUBIN,TOTAL 0.3 MG/DL (0.2-1.0); BLOOD UREA NITROGEN 96 mg/dL (7-18); CALCIUM 7.3 MG/DL (8.5-10.1); CARBON DIOXIDE 14 MMOL/L (21-32); CHLORIDE 107 MMOL/L (98-107); CREATININE 4.1 MG/DL (0.55-1.30); GAMMA GLUTAMYL TRANSPEPTIDASE 17 U/L (5-85); PHOSPHORUS 7.2 MG/DL (2.5-4.9); POTASSIUM 5.2 MMOL/L (3.5-5.1); SODIUM 135 MMOL/L (136-145)
[2018-01-21] MEDS ORDERED: Simethicone 80mg tab ORAL PRN (11:00)
[2018-01-21] MEDS: Lactobacillus-GG tablet ORAL SCH ×2 (12:56→18:28)
[2018-01-21] MEDS: Renagel 400mg cap ORAL SCH ×2 (12:56→18:28)
[2018-01-21] MEDS ORDERED: cloNIDine 0.2mg Tab ORAL SCH (14:00)
--- NOTE | 2018-01-21 15:21 | Cardiac Electrophysiology PN ---
Assessment/Plan Assessment/Plan 1. Troponin leak. Due to renal failure and severe anemia. The patient does not have any chest pain or shortness of breath. Continue Coreg 25 mg b.i.d. 2. Accelerated hypertension, likely due to renal failure. On Coreg 25 bid amd Lasix 40 iv bid Change Cardizem to Norvasc 10 mg daily and increase Clonidine to 0.3 tid. Echocardiogram Nl EF. 3. Hyperkalemia due to renal failure. 4. Renal failure. Getting worse. 5. Severe anemia. The patient received one unit of blood transfusion DW RN and mother and boyfriend at bedside. Subjective Subjective Feeling better. BP was as high as 200s. Mother and boyfriend at bedside. Objective Last 24 Hour Vital Signs Date Time Temp Pulse Resp B/P (MAP) Pulse Ox O2 Delivery O2 Flow Rate FiO2 01/21/18 12:52 60 205/106 01/21/18 12:00 58 01/21/18 11:04 60 172/109 01/21/18 09:28 205/112 01/21/18 09:28 61 205/112 01/21/18 09:27 61 205/112 01/21/18 08:48 61 18 205/112 Room Air 01/21/18 08:00 58 01/21/18 06:30 202/112 01/21/18 05:39 202/118 01/21/18 04:00 97.7 67 20 202/118 97 Room Air 97.7 01/21/18 04:00 57 01/21/18 00:00 59 01/20/18 22:12 195/106 01/20/18 21:08 186/105 01/20/18 20:21 65 170/112 01/20/18 20:00 81 01/20/18 20:00 98.4 65 20 170/112 97 Room Air 98.4 01/20/18 19:02 191/109 01/20/18 16:00 98.1 75 17 168/106 97 Room Air 98.1 01/20/18 16:00 83 Intake and Output 01/20/18 01/21/18 19:00 07:00 Intake Total 1050 ml 350 ml Balance 1050 ml 350 ml Intake Oral 800 ml 350 ml Blood Product 250 ml # Voids 3 3 # Bowel Movements 3 Laboratory Tests Test 3/23/18 00:36 01/21/18 06:25 Urine Eosinophils None seen White Blood Count 6.4 K/UL (4.8-10.8) Red Blood Count 2.85 M/UL (4.20-5.40) L Hemoglobin 8.0 G/DL (12.0-16.0) L Hematocrit 23.6 % (37.0-47.0) L Mean Corpuscular Volume 83 FL (80-99) Mean Corpuscular Hemoglobin 28.2 PG (27.0-31.0) Mean Corpuscular Hemoglobin Concent 33.9 G/DL (32.0-36.0) Red Cell Distribution Width 13.7 % (11.6-14.8) Platelet Count 103 K/UL (150-450) L Mean Platelet Volume 6.3 FL (6.5-10.1) L Neutrophils (%) (Auto) 56.3 % (45.0-75.0) Lymphocytes (%) (Auto) 23.2 % (20.0-45.0) Monocytes (%) (Auto) 10.2 % (1.0-10.0) H Eosinophils (%) (Auto) 8.7 % (0.0-3.0) H Basophils (%) (Auto) 1.6 % (0.0-2.0) Erythrocyte Sedimentation Rate 79 MM/HR (0-20) H Sodium Level 135 MMOL/L (136-145) L Potassium Level 5.2 MMOL/L (3.5-5.1) H Chloride Level 107 MMOL/L (98-107) Carbon Dioxide Level 14 MMOL/L (21-32) L Anion Gap 15 mmol/L (5-15) Blood Urea Nitrogen 96 mg/dL (7-18) H Creatinine 4.1 MG/DL (0.55-1.30) H Estimat Glomerular Filtration Rate 12.5 mL/min (>60) Glucose Level 95 MG/DL (74-106) Hemoglobin A1c 5.4 % (4.3-6.0) Uric Acid 9.8 MG/DL (2.6-7.2) H Calcium Level 7.3 MG/DL (8.5-10.1) L Phosphorus Level 7.2 MG/DL (2.5-4.9) H Magnesium Level 2.7 MG/DL (1.8-2.4) H Total Bilirubin 0.3 MG/DL (0.2-1.0) Gamma Glutamyl Transpeptidase 17 U/L (5-85) Aspartate Amino Transf (AST/SGOT) 17 U/L (15-37) Alanine Aminotransferase (ALT/SGPT) 12 U/L (12-78) Alkaline Phosphatase 64 U/L (46-116) Troponin I 0.082 ng/mL (0.000-0.056) Pro-B-Type Natriuretic Peptide 5241 pg/mL (0-125) H Total Protein 5.3 G/DL (6.4-8.2) L Albumin 2.1 G/DL (3.4-5.0) L Globulin 3.2 g/dL Albumin/Globulin Ratio 0.7 (1.0-2.7) L Anti-Nuclear Antibody Screen Pending Anti-Double Strand DNA Antibody Pending Complement C3 Pending Complement C4 Pending Total Complement (CH50) Pending Objective HEAD AND NECK: No JVD. LUNGS: Clear. CARDIOVASCULAR: Regular S1 and S2 with no gallop or murmur. ABDOMEN: Soft and nontender. EXTREMITIES: No pitting edema. Alfred Kennedy MD Jan 21, 2018 15:21
--- NOTE | 2018-01-21 17:00 | Internal Med Progress Note ---
Subjective Date of Service: Jan 21, 2018 Physician Name Juve Dubois Attending Physician Hamzah Skelton MD Current Medications Medications (Trade) Dose Ordered Sig/Gisella Route PRN Reason Start Time Stop Time Status Last Admin Dose Admin Acetaminophen (Tylenol) 650 mg Q6H PRN ORAL Mild Pain/Temp > 100.5 01/19/18 00:15 02/18/18 00:14 01/20/18 22:13 Acetaminophen/ Hydrocodone Bitart ([place] 5/325) 1 tab Q6H PRN ORAL Moderate Pain (Pain Scale 4-6) 01/19/18 00:15 01/26/18 00:14 Albumin Human 50 ml @ 50 mls/hr BID IV 01/21/18 18:00 01/24/18 17:59 Amlodipine Besylate (Norvasc) 10 mg DAILY ORAL 01/21/18 11:15 02/20/18 11:14 01/21/18 12:52 Carvedilol (Coreg) 25 mg EVERY 12 HOURS ORAL 01/21/18 21:00 02/19/18 09:59 Clonidine HCl (Catapres Tab) 0.3 mg EVERY 8 HOURS ORAL 01/21/18 22:00 02/19/18 21:59 Clonidine HCl (Catapres tab) 0.2 mg Q2H PRN ORAL SBP>170 01/20/18 13:00 02/19/18 12:59 01/21/18 09:28 Docusate Sodium (Colace) 100 mg THREE TIMES A DAY ORAL 01/20/18 13:00 02/19/18 12:59 01/21/18 09:27 Epoetin Shan (Procrit (for non ESRD use)) 10,000 units WED-WED-WED SUBQ 01/21/18 21:00 02/20/18 20:59 Furosemide (Lasix) 40 mg BID IV 01/21/18 19:00 01/24/18 18:59 Hydroxychloroquine Sulfate (Plaquenil) 200 mg TWICE A DAY ORAL 01/19/18 09:00 02/18/18 08:59 01/21/18 09:28 Lactobacillus Acidophilus (Culturelle) 1 tab THREE TIMES A DAY ORAL 01/21/18 13:00 02/20/18 12:59 01/21/18 12:56 Lansoprazole (Prevacid) 30 mg DAILY ORAL 01/20/18 17:15 02/19/18 17:14 01/21/18 09:28 Ondansetron HCl (Zofran) 4 mg Q4HR PRN IVP Nausea & Vomiting 01/19/18 00:15 02/18/18 00:14 Sevelamer HCl (Renagel) 800 mg THREE TIMES A DAY ORAL 01/21/18 13:00 02/20/18 12:59 01/21/18 12:56 Simethicone (Mylicon) 80 mg QID PRN ORAL GAS PAIN 01/21/18 11:00 02/20/18 10:59 Allergies: Coded Allergies: ACETAMINOPHEN (Verified Allergy, Unknown, 01/19/18) HYDROCODONE (Verified Allergy, Unknown, 01/19/18) ROS Limited/Unobtainable: No Constitutional: Reports: no symptoms HEENT: Reports: no symptoms Cardiovascular: Reports: no symptoms Respiratory: Reports: no symptoms Gastrointestinal/Abdominal: Reports: abdomen distended Genitourinary: Reports: no symptoms Neurologic/Psychiatric: Reports: no symptoms Subjective 32 YO F admitted with severe anemia and lupus flare. Cover for Int Med-Dr Skelton. Await rheumatology consult. Objective Last Vital Signs Date Time Temp Pulse Resp B/P (MAP) Pulse Ox O2 Delivery O2 Flow Rate FiO2 01/21/18 15:45 116/74 01/21/18 15:41 59 01/21/18 08:48 18 Room Air 01/21/18 04:00 97.7 97 97.7 Laboratory Tests Test 01/21/18 00:36 01/21/18 06:25 Urine Eosinophils None seen White Blood Count 6.4 K/UL (4.8-10.8) Red Blood Count 2.85 M/UL (4.20-5.40) L Hemoglobin 8.0 G/DL (12.0-16.0) L Hematocrit 23.6 % (37.0-47.0) L Mean Corpuscular Volume 83 FL (80-99) Mean Corpuscular Hemoglobin 28.2 PG (27.0-31.0) Mean Corpuscular Hemoglobin Concent 33.9 G/DL (32.0-36.0) Red Cell Distribution Width 13.7 % (11.6-14.8) Platelet Count 103 K/UL (150-450) L Mean Platelet Volume 6.3 FL (6.5-10.1) L Neutrophils (%) (Auto) 56.3 % (45.0-75.0) Lymphocytes (%) (Auto) 23.2 % (20.0-45.0) Monocytes (%) (Auto) 10.2 % (1.0-10.0) H Eosinophils (%) (Auto) 8.7 % (0.0-3.0) H Basophils (%) (Auto) 1.6 % (0.0-2.0) Erythrocyte Sedimentation Rate 79 MM/HR (0-20) H Sodium Level 135 MMOL/L (136-145) L Potassium Level 5.2 MMOL/L (3.5-5.1) H Chloride Level 107 MMOL/L (98-107) Carbon Dioxide Level 14 MMOL/L (21-32) L Anion Gap 15 mmol/L (5-15) Blood Urea Nitrogen 96 mg/dL (7-18) H Creatinine 4.1 MG/DL (0.55-1.30) H Estimat Glomerular Filtration Rate 12.5 mL/min (>60) Glucose Level 95 MG/DL (74-106) Hemoglobin A1c 5.4 % (4.3-6.0) Uric Acid 9.8 MG/DL (2.6-7.2) H Calcium Level 7.3 MG/DL (8.5-10.1) L Phosphorus Level 7.2 MG/DL (2.5-4.9) H Magnesium Level 2.7 MG/DL (1.8-2.4) H Total Bilirubin 0.3 MG/DL (0.2-1.0) Gamma Glutamyl Transpeptidase 17 U/L (5-85) Aspartate Amino Transf (AST/SGOT) 17 U/L (15-37) Alanine Aminotransferase (ALT/SGPT) 12 U/L (12-78) Alkaline Phosphatase 64 U/L (46-116) Troponin I 0.082 ng/mL (0.000-0.056) Pro-B-Type Natriuretic Peptide 5241 pg/mL (0-125) H Total Protein 5.3 G/DL (6.4-8.2) L Albumin 2.1 G/DL (3.4-5.0) L Globulin 3.2 g/dL Albumin/Globulin Ratio 0.7 (1.0-2.7) L Anti-Nuclear Antibody Screen Pending Anti-Double Strand DNA Antibody Pending Complement C3 Pending Complement C4 Pending Total Complement (CH50) Pending Intake and Output 01/20/18 01/21/18 19:00 07:00 Intake Total 1050 ml 350 ml Balance 1050 ml 350 ml Intake Oral 800 ml 350 ml Blood Product 250 ml # Voids 3 3 # Bowel Movements 3 Objective General Appearance: WD/WN, no apparent distress, alert EENT: PERRL/EOMI, normal ENT inspection Neck: non-tender, normal alignment, supple, normal inspection Cardiovascular: normal peripheral pulses, normal rate, regular rhythm, no gallop/murmur, no JVD Respiratory/Chest: chest wall non-tender, lungs clear, normal breath sounds, no respiratory distress, no accessory muscle use Abdomen: normal bowel sounds, non tender, soft, no organomegaly, no mass Extremities: normal range of motion, non-tender Edema: trace edema 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 Continue coreg; D/C diltiazem. Start norvasc per cardiology. Continue PRN clonidine. See cardiology note. (2) SOB (shortness of breath) (3) Ascites Assessment & Plan: Small amount. Await GI consult. (4) Systemic lupus erythematosus (5) Severe anemia Assessment & Plan: S/P Transfusion 1 unit PRBC 01/20/18-see heme note. (6) Elevated troponin Assessment & Plan: Due to renal failure. See cardiology note. (7) Renal failure Assessment & Plan: See 2nd nephrology consult (8) Hyperkalemia Status: not improved JUVE DUBOIS Jan 21, 2018 17:00
--- NOTE | 2018-01-21 17:59 | General Progress Note ---
Progress Note Progress Note [id number] full consult dictated FATIMAH DAWSON Jan 21, 2018 17:59
[2018-01-21] MEDS ORDERED: Epogen (for non ESRD use) SUBQ SCH (21:00)
[2018-01-21] MEDS: Mycophenolate 250mg cap ORAL SCH (21:32)
[2018-01-21] MEDS: Sodium Citrate 30ml ORAL SCH (22:16)
[2018-01-22] VITALS: BP 144/75
--- NOTE | 2018-01-22 00:03 | General Progress Note ---
Assessment/Plan Assessment/Plan 1. Anemia of chronic disease. --> Obtain anemia workup, B12 and folic acid, TSH, transferrin, TIBC. --> Hemoglobin goal above 7. --> Hemoglobin levels low at this time, pending PRBC 2. Leukopenia. Obtain hepatitis panel and HIV as well as ultrasound of the abdomen to rule out hepatosplenomegaly with cirrhosis. --> HIV/Hepatitis panel negative 3. Elevated troponin. Closely monitor. Consider Cardiology evaluation. 4. Thrombocytopenia. Again, consider hepatitis panel and HIV and abdominal ultrasound. --> HIV/Hep panel negative 5. Hypomagnesemia as well as hyperphosphatemia. Obtain BMP. Check the patient' s creatinine to see if there is any evidence of kidney disease. 6. Elevated D-dimer, potentially due to creatinine elevation. Continue to obtain BMP. 7. Hypertension, currently is on Coreg. Continue every 12 hours as needed. 8. Elevated lupus, currently is on Plaquenil as well as Myfortic. Continue to monitor. explain thrombocytopenia as well as anemia. 9. Appreciate consultation. Subjective Date patient seen: Jan 20, 2018 Constitutional: Denies: no symptoms, chills, diaphoresis, fever, malaise, weakness, other HEENT: Denies: no symptoms, eye pain, blurred vision, tearing, double vision, ear pain, ear discharge, nose pain, nose congestion, throat pain, throat swelling, mouth pain, mouth swelling, other Cardiovascular: Denies: no symptoms, chest pain, edema, irregular heart rate, lightheadedness, palpitations, syncope, other Respiratory: Denies: no symptoms, cough, orthopnea, shortness of breath, SOB with excertion, SOB at rest, sputum, stridor, wheezing, other Gastrointestinal/Abdominal: Denies: no symptoms, abdomen distended, abdominal pain, black stools, tarry stools, blood in stool, constipated, diarrhea, difficulty swallowing, nausea, poor appetite, poor fluid intake, rectal bleeding , vomiting, other Genitourinary: Denies: no symptoms, burning, discharge, frequency, flank pain, hematuria, incontinence, pain, urgency, other Neurologic/Psychiatric: Denies: no symptoms, anxiety, depressed, emotional problems, headache, numbness, paresthesia, pre-existing deficit, seizure, tingling, tremors, weakness, other Endocrine: Denies: no symptoms, excessive sweating, flushing, intolerance to cold, intolerance to heat, increased hunger, increased thirst, increased urine, unexplained weight gain, unexplained weight loss, other Hematologic/Lymphatic: Reports: anemia Allergies: Coded Allergies: ACETAMINOPHEN (Verified Allergy, Unknown, 01/19/18) HYDROCODONE (Verified Allergy, Unknown, 01/19/18) Subjective Pending blood transfusion. No hematochezia. Objective Last 24 Hour Vital Signs Date Time Temp Pulse Resp B/P (MAP) Pulse Ox O2 Delivery O2 Flow Rate FiO2 01/21/18 23:11 126/74 01/21/18 21:40 64 139/82 01/21/18 17:14 97.1 58 18 116/71 96 Room Air 97.1 01/21/18 16:00 60 01/21/18 15:45 116/74 01/21/18 15:41 59 116/74 01/21/18 15:39 59 118/76 01/21/18 12:52 60 205/106 01/21/18 12:00 58 01/21/18 11:04 60 172/109 01/21/18 09:28 205/112 01/21/18 09:28 61 205/112 01/21/18 09:27 61 205/112 01/21/18 08:48 61 18 205/112 Room Air 01/21/18 08:00 58 01/21/18 06:30 202/112 01/21/18 05:39 202/118 01/21/18 04:00 97.7 67 20 202/118 97 Room Air 97.7 01/21/18 04:00 57 Laboratory Tests 01/21/18 00:36: Urine Eosinophils None seen 01/21/18 06:25: White Blood Count 6.4, Red Blood Count 2.85L, Hemoglobin 8.0L, Hematocrit 23.6L , Mean Corpuscular Volume 83, Mean Corpuscular Hemoglobin 28.2, Mean Corpuscular Hemoglobin Concent 33.9, Red Cell Distribution Width 13.7, Platelet Count 103L, Mean Platelet Volume 6.3L, Neutrophils (%) (Auto) 56.3, Lymphocytes (%) (Auto) 23.2, Monocytes (%) (Auto) 10.2H, Eosinophils (%) (Auto) 8.7H, Basophils (%) (Auto) 1.6, Erythrocyte Sedimentation Rate 79H, Sodium Level 135L , Potassium Level 5.2H, Chloride Level 107, Carbon Dioxide Level 14L, Anion Gap 15, Blood Urea Nitrogen 96H, Creatinine 4.1H, Estimat Glomerular Filtration Rate 12.5, Glucose Level 95, Hemoglobin A1c 5.4, Uric Acid 9.8H, Calcium Level 7.3L, Phosphorus Level 7.2H, Magnesium Level 2.7H, Total Bilirubin 0.3, Gamma Glutamyl Transpeptidase 17, Aspartate Amino Transf (AST/SGOT) 17, Alanine Aminotransferase (ALT/SGPT) 12, Alkaline Phosphatase 64, Troponin I 0.082H, Pro- B-Type Natriuretic Peptide 5241H, Total Protein 5.3L, Albumin 2.1L, Globulin 3.2 , Albumin/Globulin Ratio 0.7L, Anti-Nuclear Antibody Screen [Pending], Anti- Double Strand DNA Antibody [Pending], Complement C3 [Pending], Complement C4 [ Pending], Total Complement (CH50) [Pending] 01/21/18 18:40: Urine Random Creatinine [Pending], Urine Random Microalbumin [Pending], Urine Random Total Protein 361H, Urine Creatinine 172.3H, Urine Microalbumin/ Creatinine Ratio [Pending] Height (Feet): 4 Height (Inches): 11.00 Weight (Pounds): 110 General Appearance: confused Respiratory/Chest: decreased breath sounds Abdomen: soft Agapito Street MD Jan 22, 2018 00:03
--- NOTE | 2018-01-22 00:06 | General Progress Note ---
Assessment/Plan Assessment/Plan 1. Anemia of chronic disease. --> Obtain anemia workup, B12 and folic acid, TSH, transferrin, TIBC. --> Anemia workup reviewed. Iron 35, TIBC 162, Vit B12 162, Folate 12.5 --> Hemoglobin goal above 7. --> S/P blood transfusion as hemoglobin levels fell low. 2. Leukopenia. Obtain hepatitis panel and HIV as well as ultrasound of the abdomen to rule out hepatosplenomegaly with cirrhosis. --> HIV/Hepatitis panel negative --> S/P Abd US: Small gallbladder polyps. Negative for gallstones or dilated ducts. --> Trace ascites. Small bilateral pleural effusions. Increased bilateral renal echogenicity, may indicate medical renal disease. 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 Elevated troponin. Closely monitor. Consider Cardiology evaluation. 4. Thrombocytopenia. Again, consider hepatitis panel and HIV and abdominal ultrasound. --> HIV/Hep panel negative 5. Hypomagnesemia as well as hyperphosphatemia. Obtain BMP. Check the patient' s creatinine to see if there is any evidence of kidney disease. 6. Elevated D-dimer, potentially due to creatinine elevation. Continue to obtain BMP. 7. Hypertension, currently is on Coreg. Continue every 12 hours as needed. 8. Elevated lupus, currently is on Plaquenil as well as Myfortic. Continue to monitor. explain thrombocytopenia as well as anemia. 9. Appreciate consultation. Subjective Date patient seen: Jan 21, 2018 Constitutional: Denies: no symptoms, chills, diaphoresis, fever, malaise, weakness, other HEENT: Denies: no symptoms, eye pain, blurred vision, tearing, double vision, ear pain, ear discharge, nose pain, nose congestion, throat pain, throat swelling, mouth pain, mouth swelling, other Cardiovascular: Denies: no symptoms, chest pain, edema, irregular heart rate, lightheadedness, palpitations, syncope, other Respiratory: Denies: no symptoms, cough, orthopnea, shortness of breath, SOB with excertion, SOB at rest, sputum, stridor, wheezing, other Gastrointestinal/Abdominal: Denies: no symptoms, abdomen distended, abdominal pain, black stools, tarry stools, blood in stool, constipated, diarrhea, difficulty swallowing, nausea, poor appetite, poor fluid intake, rectal bleeding , vomiting, other Genitourinary: Denies: no symptoms, burning, discharge, frequency, flank pain, hematuria, incontinence, pain, urgency, other Neurologic/Psychiatric: Denies: no symptoms, anxiety, depressed, emotional problems, headache, numbness, paresthesia, pre-existing deficit, seizure, tingling, tremors, weakness, other Endocrine: Denies: no symptoms, excessive sweating, flushing, intolerance to cold, intolerance to heat, increased hunger, increased thirst, increased urine, unexplained weight gain, unexplained weight loss, other Hematologic/Lymphatic: Reports: anemia Allergies: Coded Allergies: ACETAMINOPHEN (Verified Allergy, Unknown, 01/19/18) HYDROCODONE (Verified Allergy, Unknown, 01/19/18) Subjective S/P blood transfusion. No adverse events. No hematochezia. Objective Last 24 Hour Vital Signs Date Time Temp Pulse Resp B/P (MAP) Pulse Ox O2 Delivery O2 Flow Rate FiO2 01/21/18 23:11 126/74 01/21/18 21:40 64 139/82 01/21/18 17:14 97.1 58 18 116/71 96 Room Air 97.1 01/21/18 16:00 60 01/21/18 15:45 116/74 01/21/18 15:41 59 116/74 01/21/18 15:39 59 118/76 01/21/18 12:52 60 205/106 01/21/18 12:00 58 01/21/18 11:04 60 172/109 01/21/18 09:28 205/112 01/21/18 09:28 61 205/112 01/21/18 09:27 61 205/112 01/21/18 08:48 61 18 205/112 Room Air 01/21/18 08:00 58 01/21/18 06:30 202/112 01/21/18 05:39 118 01/21/18 04:00 97.7 67 20 118 97 Room Air 97.7 01/21/18 04:00 57 Laboratory Tests 01/21/18 00:36: Urine Eosinophils None seen 01/21/18 06:25: White Blood Count 6.4, Red Blood Count 2.85L, Hemoglobin 8.0L, Hematocrit 23.6L , Mean Corpuscular Volume 83, Mean Corpuscular Hemoglobin 28.2, Mean Corpuscular Hemoglobin Concent 33.9, Red Cell Distribution Width 13.7, Platelet Count 103L, Mean Platelet Volume 6.3L, Neutrophils (%) (Auto) 56.3, Lymphocytes (%) (Auto) 23.2, Monocytes (%) (Auto) 10.2H, Eosinophils (%) (Auto) 8.7H, Basophils (%) (Auto) 1.6, Erythrocyte Sedimentation Rate 79H, Sodium Level 135L , Potassium Level 5.2H, Chloride Level 107, Carbon Dioxide Level 14L, Anion Gap 15, Blood Urea Nitrogen 96H, Creatinine 4.1H, Estimat Glomerular Filtration Rate 12.5, Glucose Level 95, Hemoglobin A1c 5.4, Uric Acid 9.8H, Calcium Level 7.3L, Phosphorus Level 7.2H, Magnesium Level 2.7H, Total Bilirubin 0.3, Gamma Glutamyl Transpeptidase 17, Aspartate Amino Transf (AST/SGOT) 17, Alanine Aminotransferase (ALT/SGPT) 12, Alkaline Phosphatase 64, Troponin I 0.082H, Pro- B-Type Natriuretic Peptide 5241H, Total Protein 5.3L, Albumin 2.1L, Globulin 3.2 , Albumin/Globulin Ratio 0.7L, Anti-Nuclear Antibody Screen [Pending], Anti- Double Strand DNA Antibody [Pending], Complement C3 [Pending], Complement C4 [ Pending], Total Complement (CH50) [Pending] 01/21/18 18:40: Urine Random Creatinine [Pending], Urine Random Microalbumin [Pending], Urine Random Total Protein 361H, Urine Creatinine 172.3H, Urine Microalbumin/ Creatinine Ratio [Pending] Height (Feet): 4 Height (Inches): 11.00 Weight (Pounds): 110 General Appearance: confused Respiratory/Chest: decreased breath sounds Abdomen: soft Agapito Street MD Jan 22, 2018 00:06
--- NOTE | 2018-01-22 05:00 | Consultation ---
DATE OF CONSULTATION: 01/21/2018 NEPHROLOGY CONSULTATION CONSULTING PHYSICIAN: Josefina Garcia M.D. REFERRING PHYSICIAN: Hamzah Skelton M.D. Covering doctor, Dr. Lv Murillo. REASON FOR CONSULTATION: Acute renal failure. HISTORY OF PRESENT ILLNESS: The patient is a 32-year-old female with past medical history significant for lupus nephritis. She was diagnosed back in 2006. She had multiple admissions at [facility] and had lupus nephritis biopsies done at [facility]. The first time, the patient received Imuran and went on the remission and next session, the patient got rituximab at [facility] and her baseline creatinine was hanging around 2.6 and 2.7. The patient was originally admitted at [facility], was transferred, was presented to the emergency room at [facility] for increasing shortness of breath, increasing lower extremity edema, and found to have hemoglobin of 5 and also potassium of 7. The patient therefore consequently received transfusion, found to have accelerated blood pressure over 200, and not responding to diltiazem nor hydralazine or clonidine. The patient received Kayexalate for hyperkalemia, admitted in [facility]. I was called for management of renal disease and electrolyte imbalance. PAST MEDICAL HISTORY: Includin. History of lupus nephritis. 2. History of hypertension. 3. History of anemia. 4. History of renal failure. 5. History of anemia of chronic kidney disease. MEDICATIONS: Home medications are includin. Iron sulfate 325 mg daily. 2. Lisinopril 5 mg p.o. daily. 3. Lasix 40 mg p.o. daily. 4. Coreg 12.5 mg p.o. daily. 5. Plaquenil 200 mg p.o. daily. 6. Diltiazem 240 mg daily. 7. Mycophenolate or CellCept 360 mg p.o. b.i.d. ALLERGIES: Vicodin. SOCIAL HISTORY: She lives with a lifelong partner. Denies any history of alcohol or drug use. She has two kids, the oldest is 10 years old. REVIEW OF SYSTEMS: GENERAL: She complained of generalized weakness and complained of weight gain. The amount of weight gain is unknown. Denies any night sweats. PULMONARY: Complained of shortness of breath. Complained of orthopnea. Denies any hemoptysis. CARDIOVASCULAR: Complained of orthopnea and lower extremity swelling. Denies any palpitations. GASTROINTESTINAL: Complained of increased abdominal girth. Complained of nausea. No vomiting. No melena. No hematemesis. GENITOURINARY: Denies any dysuria, frequency, or hematuria. MUSCULOSKELETAL: She complained of generalized weakness. Denies any localized weakness or numbness. PHYSICAL EXAMINATION: VITAL SIGNS: The patient had temperature of 97, blood pressure is 205/106, pulse rate of 58, and respiratory rate of 18. HEAD AND NECK: No JVP. No LAD. No thyromegaly. Extraocular movements are intact. Pupils are reactive to light and accommodation. LUNGS: She has decreased breathing sounds on both sides. CARDIAC: Regular rate and rhythm. S1, S2. No murmur. No rub. ABDOMEN: Soft, nontender, and nondistended. Positive ascites causing shifting dullness. EXTREMITIES: A 1+ to 2+ edema. No clubbing. No cyanosis. LABORATORY AND DIAGNOSTIC DATA: Lab values revealed WBC count of 6, hemoglobin of 8, hematocrit of 23 after 3 units of blood transfusion, and platelet count was 103,000. Chemistry revealed sodium of 135, potassium 5.2, chloride 104, bicarbonate 14, BUN of 96, creatinine of 4.1, uric acid of 9.8, calcium of 7.3, magnesium 2.7, and phosphorus of 7.3. Her AST and ALT within normal limits and alkaline phosphatase within normal limits. BNP is 5240. Troponin was mildly elevated. UA revealed specific gravity of 1.015, protein 4+, blood 4+, wbc 2 to 4, and rbc 0 to 2. Hepatitis panel is negative. HIV is negative. The patient had an ultrasound of the abdomen, which revealed normal-sized kidney but echogenic, renal cysts, old disease, and trace ascites. ASSESSMENT: 1. Acute on chronic renal failure, the etiologies of acute renal failure are including ATN due to hypertensive urgency. 2. 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 3. Accelerated hypertension. 4. Rule out active lupus. PLAN: Obtain random urine protein/creatinine ratio to calculate the proteinuria. Check the urine sodium and creatinine to calculate fractional excretion of sodium. I will check the C3, C4, CH50, double-stranded DNA for evaluation of lupus activity. We would definitely recommend the patient to be seen by derrick car operator. We will do ultrasound of the kidney to evaluate the kidney size. I would start the patient on Renagel 800 mg one tablet p.o. t.i.d. with meals. We will request dietary consult for low potassium and renal diet. At this point for anasarca, I will start the patient on albumin and Lasix. I would hold the second unit of transfusion for accelerated hypertension. The patient benefits from Epogen, but at this point, denies due to her accelerated hypertension. I will hold on Epogen at this time. I would place the patient on low-potassium diet and daily weights. Based on the immune study tests, the patient may need repeat biopsy of the kidney versus starting on immunosuppressive agents. For now, I would continue with Plaquenil and CellCept. I would consider steroid pulse based on my result of the study. Again, I would like to thank, Dr. Murillo, for allowing me to participate in the care of this patient. Josefina Garcia M.D. DR: CHEPE JOB#: [id number] CC:
[2018-01-22] MEDS: Mycophenolate 250mg cap ORAL SCH ×2 (07:19→18:30)
[2018-01-22 07:28] VITALS: BP 181/102
[2018-01-22 08:06] LABS: BASOPHILS % (AUTO) 1.4 % (0.0-2.0); EOSINOPHILS % (AUTO) 8.5 % (0.0-3.0); HEMATOCRIT 24.1 % (37.0-47.0); HEMOGLOBIN 8.2 G/DL (12.0-16.0); LYMPHOCYTES % (AUTO) 19.6 % (20.0-45.0); MEAN CORPUSCULAR VOLUME 82 FL (80-99); NEUTROPHILS % (AUTO) 62.5 % (45.0-75.0); PLATELET COUNT 120 K/UL (150-450); RED BLOOD COUNT 2.93 M/UL (4.20-5.40); RED CELL DISTRIBUTION WIDTH 13.8 % (11.6-14.8); WHITE BLOOD COUNT 6.2 K/UL (4.8-10.8)
[2018-01-22 08:24] LABS: ALANINE AMINOTRANSFERASE 10 U/L (12-78); ALBUMIN 2.3 G/DL (3.4-5.0); ALBUMIN/GLOBULIN RATIO 0.7 (1.0-2.7); ALKALINE PHOSPHATASE 63 U/L (46-116); ANION GAP 14 mmol/L (5-15); ASPARTATE AMINO TRANSFERASE 15 U/L (15-37); BILIRUBIN,TOTAL 0.2 MG/DL (0.2-1.0); BLOOD UREA NITROGEN 100 mg/dL (7-18); CARBON DIOXIDE 16 MMOL/L (21-32); CHLORIDE 105 MMOL/L (98-107); CREATININE 4.6 MG/DL (0.55-1.30); SODIUM 134 MMOL/L (136-145)
[2018-01-22] MEDS: Sodium Citrate 30ml ORAL SCH ×2 (09:00→21:55)
--- NOTE | 2018-01-22 09:12 | Cardiac Electrophysiology PN ---
Assessment/Plan Assessment/Plan 1. Troponin leak. Due to renal failure and severe anemia. Denies any chest pain or shortness of breath. Continue Coreg 25 mg b.i.d. 2. Accelerated hypertension, likely due to renal failure. On Coreg 25 bid and Lasix 40 iv bid, Norvasc 10 mg daily and Clonidine 0.3 tid. Got additional prn clonidine once only. Echocardiogram Nl EF. 3. Hyperkalemia due to renal failure. 4. Renal failure. Getting worse. BUN 100, Cr 4.6 5. Severe anemia. The patient received one unit of blood transfusio. Hb 8.2 DW RN and boyfriend at bedside. Subjective Subjective Feeling better. BP was as high as 180 again before her morning meds.Boyfriend at bedside. Objective Last 24 Hour Vital Signs Date Time Temp Pulse Resp B/P (MAP) Pulse Ox O2 Delivery O2 Flow Rate FiO2 01/22/18 07:28 98.2 66 18 181/102 96 Room Air 98.2 01/22/18 07:21 181/102 01/22/18 04:00 63 01/22/18 00:00 61 01/22/18 00:00 97.2 61 18 144/75 98 Room Air 97.2 01/21/18 23:11 126/74 01/21/18 21:40 64 139/82 01/21/18 20:00 96.8 62 20 130/78 98 Room Air 96.8 01/21/18 20:00 59 01/21/18 17:14 97.1 58 18 116/71 96 Room Air 97.1 01/21/18 16:00 60 01/21/18 15:45 116/74 01/21/18 15:41 59 116/74 01/21/18 15:39 59 118/76 01/21/18 12:52 60 205/106 01/21/18 12:00 58 01/21/18 11:04 60 172/109 01/21/18 09:28 205/112 01/21/18 09:28 61 205/112 01/21/18 09:27 61 205/112 Intake and Output 01/21/18 01/22/18 19:00 07:00 # Voids 4 Laboratory Tests Test 01/21/18 18:40 01/22/18 07:50 Urine Random Creatinine Pending Urine Random Microalbumin Pending Urine Random Total Protein 361 MG/DL (< 11.9) H Urine Creatinine 172.3 MG/DL (30.0-125.0) H Urine Microalbumin/Creatinine Ratio Pending White Blood Count 6.2 K/UL (4.8-10.8) Red Blood Count 2.93 M/UL (4.20-5.40) L Hemoglobin 8.2 G/DL (12.0-16.0) L Hematocrit 24.1 % (37.0-47.0) L Mean Corpuscular Volume 82 FL (80-99) Mean Corpuscular Hemoglobin 28.0 PG (27.0-31.0) Mean Corpuscular Hemoglobin Concent 34.1 G/DL (32.0-36.0) Red Cell Distribution Width 13.8 % (11.6-14.8) Platelet Count 120 K/UL (150-450) L Mean Platelet Volume 6.2 FL (6.5-10.1) L Neutrophils (%) (Auto) 62.5 % (45.0-75.0) Lymphocytes (%) (Auto) 19.6 % (20.0-45.0) L Monocytes (%) (Auto) 8.0 % (1.0-10.0) Eosinophils (%) (Auto) 8.5 % (0.0-3.0) H Basophils (%) (Auto) 1.4 % (0.0-2.0) Sodium Level 134 MMOL/L (136-145) L Potassium Level 5.0 MMOL/L (3.5-5.1) Chloride Level 105 MMOL/L (98-107) Carbon Dioxide Level 16 MMOL/L (21-32) L Anion Gap 14 mmol/L (5-15) Blood Urea Nitrogen 100 mg/dL (7-18) H Creatinine 4.6 MG/DL (0.55-1.30) H Estimat Glomerular Filtration Rate 10.9 mL/min (>60) Glucose Level 104 MG/DL (74-106) Calcium Level 7.0 MG/DL (8.5-10.1) L Total Bilirubin 0.2 MG/DL (0.2-1.0) Aspartate Amino Transf (AST/SGOT) 15 U/L (15-37) Alanine Aminotransferase (ALT/SGPT) 10 U/L (12-78) L Alkaline Phosphatase 63 U/L (46-116) Total Protein 5.4 G/DL (6.4-8.2) L Albumin 2.3 G/DL (3.4-5.0) L Globulin 3.1 g/dL Albumin/Globulin Ratio 0.7 (1.0-2.7) L Objective HEAD AND NECK: No JVD. LUNGS: Clear. CARDIOVASCULAR: Regular S1 and S2 with no gallop or murmur. ABDOMEN: Soft and nontender. EXTREMITIES: No pitting edema. Alfred Kennedy MD Jan 22, 2018 09:12
[2018-01-22] MEDS: Carvedilol 25mg Tab ORAL SCH ×2 (09:50→21:55)
[2018-01-22] MEDS: Docusate 100mg cap ORAL SCH ×3 (09:51→18:43)
[2018-01-22] MEDS: Renagel 400mg cap ORAL SCH ×3 (09:51→18:43)
[2018-01-22] MEDS: Lactobacillus-GG tablet ORAL SCH ×3 (09:51→18:43)
[2018-01-22 09:52] VITALS: BP 168/107
[2018-01-22 12:00] VITALS: BP 147/92
--- NOTE | 2018-01-22 12:44 | Internal Med Progress Note ---
Subjective Date of Service: Jan 22, 2018 Physician Name Juve Dubois Attending Physician Hamzah Skelton MD Current Medications Medications (Trade) Dose Ordered Sig/Gisella Route PRN Reason Start Time Stop Time Status Last Admin Dose Admin Acetaminophen (Tylenol) 650 mg Q6H PRN ORAL Mild Pain/Temp > 100.5 01/19/18 00:15 02/18/18 00:14 01/20/18 22:13 Acetaminophen/ Hydrocodone Bitart ([place] 5/325) 1 tab Q6H PRN ORAL Moderate Pain (Pain Scale 4-6) 01/19/18 00:15 01/26/18 00:14 Albumin Human 50 ml @ 50 mls/hr BID IV 01/21/18 18:00 01/24/18 17:59 01/22/18 09:27 Amlodipine Besylate (Norvasc) 10 mg DAILY ORAL 01/21/18 11:15 02/20/18 11:14 01/22/18 09:50 Carvedilol (Coreg) 25 mg EVERY 12 HOURS ORAL 01/21/18 21:00 02/19/18 09:59 01/22/18 09:50 Clonidine HCl (Catapres Tab) 0.3 mg EVERY 8 HOURS ORAL 01/21/18 22:00 02/19/18 21:59 01/22/18 07:21 Clonidine HCl (Catapres tab) 0.2 mg Q2H PRN ORAL SBP>170 01/20/18 13:00 02/19/18 12:59 01/21/18 09:28 Docusate Sodium (Colace) 100 mg THREE TIMES A DAY ORAL 01/20/18 13:00 02/19/18 12:59 01/21/18 09:27 Epoetin Shan (Procrit (for non ESRD use)) 10,000 units WED-WED-WED SUBQ 01/21/18 21:00 02/20/18 20:59 01/21/18 21:39 Furosemide (Lasix) 40 mg BID IV 01/21/18 19:00 01/24/18 18:59 01/22/18 11:35 Hydroxychloroquine Sulfate (Plaquenil) 200 mg TWICE A DAY ORAL 01/19/18 09:00 02/18/18 08:59 01/22/18 09:37 Lactobacillus Acidophilus (Culturelle) 1 tab THREE TIMES A DAY ORAL 01/21/18 13:00 02/20/18 12:59 01/21/18 18:28 Lansoprazole (Prevacid) 30 mg DAILY ORAL 01/20/18 17:15 02/19/18 17:14 01/21/18 09:28 Mycophenolate Mofetil (Cellcept) 1,000 mg Q12HR@0630,1830 ORAL 01/21/18 20:00 02/20/18 19:59 01/22/18 07:19 Ondansetron HCl (Zofran) 4 mg Q4HR PRN IVP Nausea & Vomiting 01/19/18 00:15 02/18/18 00:14 Sevelamer HCl (Renagel) 800 mg THREE TIMES A DAY ORAL 01/21/18 13:00 02/20/18 12:59 01/22/18 12:19 Simethicone (Mylicon) 80 mg QID PRN ORAL GAS PAIN 01/21/18 11:00 02/20/18 10:59 Sodium Citrate (Bicitra) 30 ml EVERY 12 HOURS ORAL 01/21/18 21:00 02/20/18 20:59 01/21/18 22:16 Allergies: Coded Allergies: ACETAMINOPHEN (Verified Allergy, Unknown, 01/19/18) HYDROCODONE (Verified Allergy, Unknown, 01/19/18) ROS Limited/Unobtainable: No Constitutional: Reports: no symptoms HEENT: Reports: no symptoms Cardiovascular: Reports: no symptoms Respiratory: Reports: shortness of breath Gastrointestinal/Abdominal: Reports: no symptoms Genitourinary: Reports: no symptoms Neurologic/Psychiatric: Reports: no symptoms Subjective 32 YO F admitted with severe anemia and lupus flare. Cover for Int Med-Dr Skelton. Await rheumatology consult. Objective Last Vital Signs Date Time Temp Pulse Resp B/P (MAP) Pulse Ox O2 Delivery O2 Flow Rate FiO2 01/22/18 09:52 68 168/107 01/22/18 07:28 98.2 18 96 Room Air 98.2 Laboratory Tests Test 01/21/18 18:40 01/22/18 07:50 Urine Random Creatinine Pending Urine Random Microalbumin Pending Urine Random Total Protein 361 MG/DL (< 11.9) H Urine Creatinine 172.3 MG/DL (30.0-125.0) H Urine Microalbumin/Creatinine Ratio Pending White Blood Count 6.2 K/UL (4.8-10.8) Red Blood Count 2.93 M/UL (4.20-5.40) L Hemoglobin 8.2 G/DL (12.0-16.0) L Hematocrit 24.1 % (37.0-47.0) L Mean Corpuscular Volume 82 FL (80-99) Mean Corpuscular Hemoglobin 28.0 PG (27.0-31.0) Mean Corpuscular Hemoglobin Concent 34.1 G/DL (32.0-36.0) Red Cell Distribution Width 13.8 % (11.6-14.8) Platelet Count 120 K/UL (150-450) L Mean Platelet Volume 6.2 FL (6.5-10.1) L Neutrophils (%) (Auto) 62.5 % (45.0-75.0) Lymphocytes (%) (Auto) 19.6 % (20.0-45.0) L Monocytes (%) (Auto) 8.0 % (1.0-10.0) Eosinophils (%) (Auto) 8.5 % (0.0-3.0) H Basophils (%) (Auto) 1.4 % (0.0-2.0) Sodium Level 134 MMOL/L (136-145) L Potassium Level 5.0 MMOL/L (3.5-5.1) Chloride Level 105 MMOL/L (98-107) Carbon Dioxide Level 16 MMOL/L (21-32) L Anion Gap 14 mmol/L (5-15) Blood Urea Nitrogen 100 mg/dL (7-18) H Creatinine 4.6 MG/DL (0.55-1.30) H Estimat Glomerular Filtration Rate 10.9 mL/min (>60) Glucose Level 104 MG/DL (74-106) Calcium Level 7.0 MG/DL (8.5-10.1) L Total Bilirubin 0.2 MG/DL (0.2-1.0) Aspartate Amino Transf (AST/SGOT) 15 U/L (15-37) Alanine Aminotransferase (ALT/SGPT) 10 U/L (12-78) L Alkaline Phosphatase 63 U/L (46-116) Total Protein 5.4 G/DL (6.4-8.2) L Albumin 2.3 G/DL (3.4-5.0) L Globulin 3.1 g/dL Albumin/Globulin Ratio 0.7 (1.0-2.7) L Intake and Output 01/21/18 01/22/18 19:00 07:00 # Voids 4 Objective General Appearance: WD/WN, no apparent distress, alert EENT: PERRL/EOMI, normal ENT inspection Neck: non-tender, normal alignment, supple, normal inspection Cardiovascular: normal peripheral pulses, normal rate, regular rhythm, no gallop/murmur, no JVD Respiratory/Chest: chest wall non-tender, lungs clear, normal breath sounds, no respiratory distress, no accessory muscle use Abdomen: normal bowel sounds, non tender, soft, no organomegaly, no mass Extremities: normal range of motion, non-tender Edema: trace edema Neurologic: logistics lead II-XII grossly normal, no motor/sensory deficits Skin: normal pigmentation, warm/dry Assessment/Plan Problem List: (1) Hypertensive emergency Assessment & Plan: Patient refuses IV hydralazine. Continue coreg; D/C diltiazem. Start norvasc per cardiology. Continue PRN clonidine. See cardiology note. (2) SOB (shortness of breath) (3) Ascites Assessment & Plan: Small amount. Await GI consult. (4) Systemic lupus erythematosus (5) Severe anemia Assessment & Plan: S/P Transfusion 1 unit PRBC 01/20/18-see heme note. (6) Elevated troponin Assessment & Plan: Due to renal failure. See cardiology note. (7) Renal failure Assessment & Plan: See 2nd nephrology consult (8) Hyperkalemia Status: not improved JUVE DUBOIS Jan 22, 2018 12:44
[2018-01-22 16:00] VITALS: BP 137/85
--- NOTE | 2018-01-22 17:54 | General Progress Note ---
Assessment/Plan Assessment/Plan Assessment (1) Anemia (2) Ascites (3) SOB (shortness of breath) (4) Renal failure Plan defer paracentesis at this time renal diet with 2L fluid / sodium restriction prn transfusions fu nephro recs, labs Subjective Allergies: Coded Allergies: ACETAMINOPHEN (Verified Allergy, Unknown, 01/19/18) HYDROCODONE (Verified Allergy, Unknown, 01/19/18) Subjective Feels OK family at bedside getting food from outside no abd pain Objective Last 24 Hour Vital Signs Date Time Temp Pulse Resp B/P (MAP) Pulse Ox O2 Delivery O2 Flow Rate FiO2 01/22/18 16:03 137/85 01/22/18 16:00 97.9 76 20 137/85 96 Room Air 97.9 01/22/18 16:00 72 01/22/18 12:00 97.9 75 16 147/92 97 Room Air 97.9 01/22/18 12:00 76 01/22/18 09:52 68 168/107 01/22/18 09:50 66 181/102 01/22/18 09:50 66 181/102 01/22/18 08:00 66 01/22/18 07:28 98.2 66 18 181/102 96 Room Air 98.2 01/22/18 07:21 181/102 01/22/18 04:00 63 01/22/18 00:00 61 01/22/18 00:00 97.2 61 18 144/75 98 Room Air 97.2 01/21/18 23:11 126/74 01/21/18 21:40 64 139/82 01/21/18 20:00 96.8 62 20 130/78 98 Room Air 96.8 01/21/18 20:00 59 Intake and Output 01/21/18 01/22/18 19:00 07:00 # Voids 4 Laboratory Tests 01/21/18 18:40: Urine Random Creatinine [Pending], Urine Random Microalbumin [Pending], Urine Random Total Protein 361H, Urine Creatinine 172.3H, Urine Microalbumin/ Creatinine Ratio [Pending] 01/22/18 07:50: White Blood Count 6.2, Red Blood Count 2.93L, Hemoglobin 8.2L, Hematocrit 24.1L , Mean Corpuscular Volume 82, Mean Corpuscular Hemoglobin 28.0, Mean Corpuscular Hemoglobin Concent 34.1, Red Cell Distribution Width 13.8, Platelet Count 120L, Mean Platelet Volume 6.2L, Neutrophils (%) (Auto) 62.5, Lymphocytes (%) (Auto) 19.6L, Monocytes (%) (Auto) 8.0, Eosinophils (%) (Auto) 8.5H, Basophils (%) (Auto) 1.4, Sodium Level 134L, Potassium Level 5.0, Chloride Level 105, Carbon Dioxide Level 16L, Anion Gap 14, Blood Urea Nitrogen 100H, Creatinine 4.6H, Estimat Glomerular Filtration Rate 10.9, Glucose Level 104, Calcium Level 7.0L, Total Bilirubin 0.2, Aspartate Amino Transf (AST/SGOT) 15, Alanine Aminotransferase (ALT/SGPT) 10L, Alkaline Phosphatase 63, Total Protein 5.4L, Albumin 2.3L, Globulin 3.1, Albumin/Globulin Ratio 0.7L Height (Feet): 4 Height (Inches): 11.00 Weight (Pounds): 110 Objective WDWN NCAT supple CTA RRR soft ND NT no edema non focal NABIL FOWLER Jan 22, 2018 17:54
[2018-01-22 20:00] VITALS: BP 146/91
--- NOTE | 2018-01-22 23:49 | General Progress Note ---
Assessment/Plan Assessment/Plan 1. Anemia of chronic disease. --> Anemia workup reviewed. Iron 35, TIBC 162, Vit B12 162, Folate 12.5 --> Hemoglobin goal above 7. --> Hemoglobin stable since recent transfusion. 2. Leukopenia. Obtain hepatitis panel and HIV as well as ultrasound of the abdomen to rule out hepatosplenomegaly with cirrhosis. --> HIV/Hepatitis panel negative --> S/P Abd US: Small gallbladder polyps. Negative for gallstones or dilated ducts. --> Trace ascites. Small bilateral pleural effusions. Increased bilateral renal echogenicity, may indicate medical renal disease. 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 Elevated troponin. Closely monitor. Consider Cardiology evaluation. 4. Thrombocytopenia. Again, consider hepatitis panel and HIV and abdominal ultrasound. --> HIV/Hep panel negative 5. Hypomagnesemia as well as hyperphosphatemia. Obtain BMP. Check the patient' s creatinine to see if there is any evidence of kidney disease. 6. Elevated D-dimer, potentially due to creatinine elevation. Continue to obtain BMP. 7. Hypertension, currently is on Coreg. Continue every 12 hours as needed. 8. Elevated lupus, currently is on Plaquenil as well as Myfortic. Continue to monitor. explain thrombocytopenia as well as anemia. 9. Appreciate consultation. Subjective Date patient seen: Jan 22, 2018 Allergies: Coded Allergies: ACETAMINOPHEN (Verified Allergy, Unknown, 01/19/18) HYDROCODONE (Verified Allergy, Unknown, 01/19/18) Subjective Hemoglobin and platelet improved. No fever or chills. Objective Last 24 Hour Vital Signs Date Time Temp Pulse Resp B/P (MAP) Pulse Ox O2 Delivery O2 Flow Rate FiO2 01/22/18 21:55 137/85 01/22/18 21:55 72 137/85 01/22/18 16:03 137/85 01/22/18 16:00 97.9 76 20 137/85 96 Room Air 97.9 01/22/18 16:00 72 01/22/18 12:00 97.9 75 16 147/92 97 Room Air 97.9 01/22/18 12:00 76 01/22/18 09:52 68 168/107 01/22/18 09:50 66 181/102 01/22/18 09:50 66 181/102 01/22/18 08:00 66 01/22/18 07:28 98.2 66 18 181/102 96 Room Air 98.2 01/22/18 07:21 181/102 01/22/18 04:00 63 01/22/18 00:00 61 01/22/18 00:00 97.2 61 18 144/75 98 Room Air 97.2 Intake and Output 01/21/18 01/22/18 19:00 07:00 # Voids 4 Laboratory Tests 01/22/18 07:50: White Blood Count 6.2, Red Blood Count 2.93L, Hemoglobin 8.2L, Hematocrit 24.1L , Mean Corpuscular Volume 82, Mean Corpuscular Hemoglobin 28.0, Mean Corpuscular Hemoglobin Concent 34.1, Red Cell Distribution Width 13.8, Platelet Count 120L, Mean Platelet Volume 6.2L, Neutrophils (%) (Auto) 62.5, Lymphocytes (%) (Auto) 19.6L, Monocytes (%) (Auto) 8.0, Eosinophils (%) (Auto) 8.5H, Basophils (%) (Auto) 1.4, Sodium Level 134L, Potassium Level 5.0, Chloride Level 105, Carbon Dioxide Level 16L, Anion Gap 14, Blood Urea Nitrogen 100H, Creatinine 4.6H, Estimat Glomerular Filtration Rate 10.9, Glucose Level 104, Calcium Level 7.0L, Total Bilirubin 0.2, Aspartate Amino Transf (AST/SGOT) 15, Alanine Aminotransferase (ALT/SGPT) 10L, Alkaline Phosphatase 63, Total Protein 5.4L, Albumin 2.3L, Globulin 3.1, Albumin/Globulin Ratio 0.7L Height (Feet): 4 Height (Inches): 11.00 Weight (Pounds): 110 General Appearance: no apparent distress Respiratory/Chest: decreased breath sounds Abdomen: soft Agapito Street MD Jan 22, 2018 23:49
--- NOTE | 2018-01-22 23:58 | Nephrology Progress Note ---
Assessment/Plan Assessment 1. Acute on chronic renal failure, the etiologies of acute renal failure are including ATN due to hypertensive urgency. 2. 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 Accelerated hypertension. 4. Rule out active lupus. 5.MADAI 6.Acidosis 7.anemia of CKD Plan plan continue Renvela continue epogen spoke to her and her boyfriend regarding need for dialysis for possible uremic symptom in detail spoke to them regarding marker before treatment with steroid her nurse is on bedside Subjective Constitutional: Reports: no symptoms, malaise, weakness HEENT: Reports: no symptoms Genitourinary: Reports: no symptoms Neurologic/Psychiatric: Reports: no symptoms, weakness Subjective alert and wake c/o fatigue and decrease her appetite Objective Objective Last 24 Hour Vital Signs Date Time Temp Pulse Resp B/P (MAP) Pulse Ox O2 Delivery O2 Flow Rate FiO2 01/22/18 21:55 137/85 01/22/18 21:55 72 137/85 01/22/18 16:03 137/85 01/22/18 16:00 97.9 76 20 137/85 96 Room Air 97.9 01/22/18 16:00 72 01/22/18 12:00 97.9 75 16 147/92 97 Room Air 97.9 01/22/18 12:00 76 01/22/18 09:52 68 168/107 01/22/18 09:50 66 181/102 01/22/18 09:50 66 181/102 01/22/18 08:00 66 01/22/18 07:28 98.2 66 18 181/102 96 Room Air 98.2 01/22/18 07:21 181/102 01/22/18 04:00 63 01/22/18 00:00 61 01/22/18 00:00 97.2 61 18 144/75 98 Room Air 97.2 Intake and Output 01/21/18 01/22/18 19:00 07:00 # Voids 4 Laboratory Tests 01/22/18 07:50: White Blood Count 6.2, Red Blood Count 2.93L, Hemoglobin 8.2L, Hematocrit 24.1L , Mean Corpuscular Volume 82, Mean Corpuscular Hemoglobin 28.0, Mean Corpuscular Hemoglobin Concent 34.1, Red Cell Distribution Width 13.8, Platelet Count 120L, Mean Platelet Volume 6.2L, Neutrophils (%) (Auto) 62.5, Lymphocytes (%) (Auto) 19.6L, Monocytes (%) (Auto) 8.0, Eosinophils (%) (Auto) 8.5H, Basophils (%) (Auto) 1.4, Sodium Level 134L, Potassium Level 5.0, Chloride Level 105, Carbon Dioxide Level 16L, Anion Gap 14, Blood Urea Nitrogen 100H, Creatinine 4.6H, Estimat Glomerular Filtration Rate 10.9, Glucose Level 104, Calcium Level 7.0L, Total Bilirubin 0.2, Aspartate Amino Transf (AST/SGOT) 15, Alanine Aminotransferase (ALT/SGPT) 10L, Alkaline Phosphatase 63, Total Protein 5.4L, Albumin 2.3L, Globulin 3.1, Albumin/Globulin Ratio 0.7L Height (Feet): 4 Height (Inches): 11.00 Weight (Pounds): 110 Objective HEAD AND NECK: No JVP. No LAD. No thyromegaly. Extraocular movements are intact. Pupils are reactive to light and accommodation. LUNGS: She has decreased breathing sounds on both sides. CARDIAC: Regular rate and rhythm. S1, S2. No murmur. No rub. ABDOMEN: Soft, nontender, and nondistended. Positive ascites causing shifting dullness. EXTREMITIES: A 1+ to 2+ edema. No clubbing. No cyanosis. FATIMAH DAWSON Jan 22, 2018 23:58
[2018-01-23] VITALS: BP 152/90
[2018-01-23] MEDS: Mycophenolate 250mg cap ORAL SCH ×2 (06:30→18:36)
[2018-01-23 08:00] VITALS: BP 144/91
[2018-01-23] MEDS: Carvedilol 25mg Tab ORAL SCH ×2 (10:12→21:24)
[2018-01-23] MEDS: Renagel 400mg cap ORAL SCH ×3 (10:12→18:37)
[2018-01-23] MEDS: Docusate 100mg cap ORAL SCH ×3 (10:13→18:36)
[2018-01-23] MEDS: Sodium Citrate 30ml ORAL SCH ×2 (10:13→21:24)
[2018-01-23] MEDS: Lactobacillus-GG tablet ORAL SCH ×3 (10:14→18:37)
[2018-01-23] MEDS ORDERED: NS 275ml ONE ×2 (10:42→10:50)
[2018-01-23] MEDS ORDERED: Tubing IV Secondary IV ONE (10:42)
[2018-01-23] MEDS ORDERED: Tubing Blood Filter IV ONE (10:50)
[2018-01-23] MEDS ORDERED: D5 1/2NS 1000ml IV ONE (10:50)
[2018-01-23 12:00] VITALS: BP 138/87
--- NOTE | 2018-01-23 12:43 | Internal Med Progress Note ---
Subjective Date of Service: Jan 23, 2018 Physician Name Juve Dubois Attending Physician Hamzah Skelton MD Current Medications Medications (Trade) Dose Ordered Sig/Gisella Route PRN Reason Start Time Stop Time Status Last Admin Dose Admin Acetaminophen (Tylenol) 650 mg Q6H PRN ORAL Mild Pain/Temp > 100.5 01/19/18 00:15 02/18/18 00:14 01/20/18 22:13 Acetaminophen/ Hydrocodone Bitart ([place] 5/325) 1 tab Q6H PRN ORAL Moderate Pain (Pain Scale 4-6) 01/19/18 00:15 01/26/18 00:14 Albumin Human 50 ml @ 50 mls/hr BID IV 01/21/18 18:00 01/24/18 17:59 01/23/18 10:14 Amlodipine Besylate (Norvasc) 10 mg DAILY ORAL 01/21/18 11:15 02/20/18 11:14 01/23/18 10:13 Carvedilol (Coreg) 25 mg EVERY 12 HOURS ORAL 01/21/18 21:00 02/19/18 09:59 01/23/18 10:12 Clonidine HCl (Catapres Tab) 0.3 mg EVERY 8 HOURS ORAL 01/21/18 22:00 02/19/18 21:59 01/22/18 21:55 Clonidine HCl (Catapres tab) 0.2 mg Q2H PRN ORAL SBP>170 01/20/18 13:00 02/19/18 12:59 01/21/18 09:28 Docusate Sodium (Colace) 100 mg THREE TIMES A DAY ORAL 01/20/18 13:00 02/19/18 12:59 01/23/18 10:13 Epoetin Shan (Procrit (for non ESRD use)) 10,000 units WED-WED-WED SUBQ 01/21/18 21:00 02/20/18 20:59 01/21/18 21:39 Furosemide (Lasix) 40 mg BID IV 01/21/18 19:00 01/24/18 18:59 01/23/18 10:13 Hydroxychloroquine Sulfate (Plaquenil) 200 mg TWICE A DAY ORAL 01/19/18 09:00 02/18/18 08:59 01/23/18 10:11 Lactobacillus Acidophilus (Culturelle) 1 tab THREE TIMES A DAY ORAL 01/21/18 13:00 02/20/18 12:59 01/23/18 10:14 Lansoprazole (Prevacid) 30 mg DAILY ORAL 01/20/18 17:15 02/19/18 17:14 01/23/18 09:00 Mycophenolate Mofetil (Cellcept) 1,000 mg Q12HR@0630,1830 ORAL 01/21/18 20:00 02/20/18 19:59 01/22/18 07:19 Ondansetron HCl (Zofran) 4 mg Q4HR PRN IVP Nausea & Vomiting 01/19/18 00:15 02/18/18 00:14 Sevelamer HCl (Renagel) 800 mg THREE TIMES A DAY ORAL 01/21/18 13:00 02/20/18 12:59 01/23/18 10:12 Simethicone (Mylicon) 80 mg QID PRN ORAL GAS PAIN 01/21/18 11:00 02/20/18 10:59 Sodium Citrate (Bicitra) 30 ml EVERY 12 HOURS ORAL 01/21/18 21:00 02/20/18 20:59 01/23/18 10:13 Allergies: Coded Allergies: ACETAMINOPHEN (Verified Allergy, Unknown, 01/19/18) HYDROCODONE (Verified Allergy, Unknown, 01/19/18) ROS Limited/Unobtainable: No Constitutional: Reports: no symptoms HEENT: Reports: no symptoms Cardiovascular: Reports: no symptoms Respiratory: Reports: no symptoms Gastrointestinal/Abdominal: Reports: no symptoms Genitourinary: Reports: no symptoms Neurologic/Psychiatric: Reports: no symptoms Subjective 32 YO F admitted with severe anemia and lupus flare. Cover for Int Med-Dr Skelton. Await rheumatology consult. Objective Last Vital Signs Date Time Temp Pulse Resp B/P (MAP) Pulse Ox O2 Delivery O2 Flow Rate FiO2 01/23/18 10:13 69 144/91 01/23/18 08:00 97.5 19 96 Room Air 97.5 Intake and Output 01/22/18 01/23/18 19:00 07:00 Intake Total 900 ml 200 ml Output Total 250 ml Balance 650 ml 200 ml Intake Oral 900 ml 200 ml Output Urine Total 250 ml # Voids 1 Objective General Appearance: WD/WN, no apparent distress, alert EENT: PERRL/EOMI, normal ENT inspection Neck: non-tender, normal alignment, supple, normal inspection Cardiovascular: normal peripheral pulses, normal rate, regular rhythm, no gallop/murmur, no JVD Respiratory/Chest: chest wall non-tender, lungs clear, normal breath sounds, no respiratory distress, no accessory muscle use Abdomen: normal bowel sounds, non tender, soft, no organomegaly, no mass Extremities: normal range of motion, non-tender Edema: trace edema Neurologic: traffic expert II-XII grossly normal, no motor/sensory deficits Skin: normal pigmentation, warm/dry Assessment/Plan Problem List: (1) Hypertensive emergency Assessment & Plan: Patient refuses IV hydralazine. Continue coreg; D/C diltiazem. Start norvasc per cardiology. Continue PRN clonidine. See cardiology note. (2) SOB (shortness of breath) (3) Ascites Assessment & Plan: Small amount. Await GI consult. (4) Systemic lupus erythematosus Assessment & Plan: Await Rheumatology consult-Dr Kohler notified (5) Severe anemia Assessment & Plan: S/P Transfusion 1 unit PRBC 01/20/18-see heme note. (6) Elevated troponin Assessment & Plan: Due to renal failure. See cardiology note. (7) Renal failure Assessment & Plan: See 2nd nephrology consult (8) Hyperkalemia Status: progressing JUVE DUBOIS Jan 23, 2018 12:43
[2018-01-23 13:57] LABS: ALANINE AMINOTRANSFERASE 14 U/L (12-78); ALBUMIN 2.6 G/DL (3.4-5.0); ALKALINE PHOSPHATASE 62 U/L (46-116); ANION GAP 13 mmol/L (5-15); ASPARTATE AMINO TRANSFERASE 14 U/L (15-37); BILIRUBIN,TOTAL 0.2 MG/DL (0.2-1.0); BLOOD UREA NITROGEN 102 mg/dL (7-18); CALCIUM 6.8 MG/DL (8.5-10.1); CARBON DIOXIDE 16 MMOL/L (21-32); CHLORIDE 107 MMOL/L (98-107); CREATININE 4.7 MG/DL (0.55-1.30); SODIUM 136 MMOL/L (136-145)
[2018-01-23] MEDS: cloNIDine 0.2mg Tab ORAL PRN (14:49)
[2018-01-23 16:00] VITALS: BP 140/83
--- NOTE | 2018-01-23 16:10 | General Progress Note ---
Assessment/Plan Assessment/Plan Assessment (1) Anemia (2) Ascites (3) SOB (shortness of breath) (4) Renal failure (5) Bloating Plan defer paracentesis at this time renal diet with 2L fluid / sodium restriction prn transfusions fu nephro recs, labs ambulate and sleep on side Subjective Allergies: Coded Allergies: ACETAMINOPHEN (Verified Allergy, Unknown, 01/19/18) HYDROCODONE (Verified Allergy, Unknown, 01/19/18) Subjective Feels OK still bloated feels gas filled advised to ambulate or sleep on side Objective Last 24 Hour Vital Signs Date Time Temp Pulse Resp B/P (MAP) Pulse Ox O2 Delivery O2 Flow Rate FiO2 01/23/18 15:00 144/91 01/23/18 12:00 77 01/23/18 12:00 97.5 73 19 138/87 96 Room Air 97.5 01/23/18 10:13 69 144/91 01/23/18 10:12 69 144/91 01/23/18 08:00 78 01/23/18 08:00 97.5 69 19 144/91 96 Room Air 97.5 01/23/18 04:00 72 01/23/18 00:00 74 01/23/18 00:00 97.3 75 18 152/90 97 Room Air 97.3 01/22/18 21:55 137/85 01/22/18 21:55 72 137/85 01/22/18 20:00 67 01/22/18 20:00 97.9 66 18 146/91 98 Room Air 97.9 Intake and Output 01/22/18 01/23/18 19:00 07:00 Intake Total 900 ml 200 ml Output Total 250 ml Balance 650 ml 200 ml Intake Oral 900 ml 200 ml Output Urine Total 250 ml # Voids 1 Laboratory Tests 01/23/18 13:20: Sodium Level 136, Potassium Level 5.0, Chloride Level 107, Carbon Dioxide Level 16L, Anion Gap 13, Blood Urea Nitrogen 102H, Creatinine 4.7H, Estimat Glomerular Filtration Rate 10.6, Glucose Level 112H, Calcium Level 6.8L, Total Bilirubin 0.2, Aspartate Amino Transf (AST/SGOT) 14L, Alanine Aminotransferase ( ALT/SGPT) 14, Alkaline Phosphatase 62, Total Protein 5.2L, Albumin 2.6L, Globulin 2.6, Albumin/Globulin Ratio 1.0 Height (Feet): 4 Height (Inches): 11.00 Weight (Pounds): 110 Objective WDWN NCAT supple CTA RRR soft ND NT no edema non focal NABIL FOWLER Jan 23, 2018 16:10
--- NOTE | 2018-01-23 16:46 | Nephrology Progress Note ---
Assessment/Plan Assessment 1. Acute on chronic renal failure, the etiologies of acute renal failure are including ATN due to hypertensive urgency. 2. 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 Accelerated hypertension. 4. Rule out active lupus. 5.MADAI 6.Acidosis 7.anemia of CKD Plan plan continue bicitra continue Renvela continue epogen spoke to her and her boyfriend regarding need for dialysis for possible uremic symptom in detail spoke to them regarding marker before treatment with steroid awaiting for rheumatology consult Subjective Constitutional: Reports: no symptoms HEENT: Reports: no symptoms Genitourinary: Reports: no symptoms Neurologic/Psychiatric: Reports: no symptoms Subjective alert and wake c/o fatigue and decrease her appetite overall feeling better today her boyfriend in her bedside Objective Objective Last 24 Hour Vital Signs Date Time Temp Pulse Resp B/P (MAP) Pulse Ox O2 Delivery O2 Flow Rate FiO2 01/23/18 15:00 144/91 01/23/18 12:00 77 01/23/18 12:00 97.5 73 19 138/87 96 Room Air 97.5 01/23/18 10:13 69 144/91 01/23/18 10:12 69 144/91 01/23/18 08:00 78 01/23/18 08:00 97.5 69 19 144/91 96 Room Air 97.5 01/23/18 04:00 72 01/23/18 00:00 74 01/23/18 00:00 97.3 75 18 152/90 97 Room Air 97.3 01/22/18 21:55 137/85 01/22/18 21:55 72 137/85 01/22/18 20:00 67 01/22/18 20:00 97.9 66 18 146/91 98 Room Air 97.9 Intake and Output 01/22/18 01/23/18 19:00 07:00 Intake Total 900 ml 200 ml Output Total 250 ml Balance 650 ml 200 ml Intake Oral 900 ml 200 ml Output Urine Total 250 ml # Voids 1 Laboratory Tests 01/23/18 13:20: Sodium Level 136, Potassium Level 5.0, Chloride Level 107, Carbon Dioxide Level 16L, Anion Gap 13, Blood Urea Nitrogen 102H, Creatinine 4.7H, Estimat Glomerular Filtration Rate 10.6, Glucose Level 112H, Calcium Level 6.8L, Total Bilirubin 0.2, Aspartate Amino Transf (AST/SGOT) 14L, Alanine Aminotransferase ( ALT/SGPT) 14, Alkaline Phosphatase 62, Total Protein 5.2L, Albumin 2.6L, Globulin 2.6, Albumin/Globulin Ratio 1.0 Height (Feet): 4 Height (Inches): 11.00 Weight (Pounds): 110 Objective HEAD AND NECK: No JVP. No LAD. No thyromegaly. Extraocular movements are intact. Pupils are reactive to light and accommodation. LUNGS: She has decreased breathing sounds on both sides. CARDIAC: Regular rate and rhythm. S1, S2. No murmur. No rub. ABDOMEN: Soft, nontender, and nondistended. Positive ascites causing shifting dullness. EXTREMITIES: A 1+ to 2+ edema. No clubbing. No cyanosis. FATIMAH DAWSON Jan 23, 2018 16:46
[2018-01-23 20:00] VITALS: BP 159/91
--- NOTE | 2018-01-23 23:54 | General Progress Note ---
Assessment/Plan Assessment/Plan 1. Anemia of chronic disease. --> Anemia workup reviewed. Iron 35, TIBC 162, Vit B12 162, Folate 12.5 --> Hemoglobin goal above 7. --> Blood transfusion not required unless symptomatic or hgb >7 2. Leukopenia. --> HIV/Hepatitis panel negative --> S/P Abd US: Small gallbladder polyps. Negative for gallstones or dilated ducts. --> Trace ascites. Small bilateral pleural effusions. Increased bilateral renal echogenicity, may indicate medical renal disease. 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 Elevated troponin. Closely monitor. Consider Cardiology evaluation. 4. Thrombocytopenia. Again, consider hepatitis panel and HIV and abdominal ultrasound. --> HIV/Hep panel negative 5. Hypomagnesemia as well as hyperphosphatemia. Obtain BMP. Check the patient' s creatinine to see if there is any evidence of kidney disease. 6. Elevated D-dimer, potentially due to creatinine elevation. Continue to obtain BMP. 7. Hypertension, currently is on Coreg. Continue every 12 hours as needed. 8. Elevated lupus, currently is on Plaquenil as well as Myfortic. Continue to monitor. explain thrombocytopenia as well as anemia. 9. Appreciate consultation. Subjective Date patient seen: Jan 23, 2018 Constitutional: Denies: no symptoms, chills, diaphoresis, fever, malaise, weakness, other HEENT: Denies: no symptoms, eye pain, blurred vision, tearing, double vision, ear pain, ear discharge, nose pain, nose congestion, throat pain, throat swelling, mouth pain, mouth swelling, other Cardiovascular: Denies: no symptoms, chest pain, edema, irregular heart rate, lightheadedness, palpitations, syncope, other Respiratory: Denies: no symptoms, cough, orthopnea, shortness of breath, SOB with excertion, SOB at rest, sputum, stridor, wheezing, other Gastrointestinal/Abdominal: Denies: no symptoms, abdomen distended, abdominal pain, black stools, tarry stools, blood in stool, constipated, diarrhea, difficulty swallowing, nausea, poor appetite, poor fluid intake, rectal bleeding , vomiting, other Genitourinary: Denies: no symptoms, burning, discharge, frequency, flank pain, hematuria, incontinence, pain, urgency, other Neurologic/Psychiatric: Denies: no symptoms, anxiety, depressed, emotional problems, headache, numbness, paresthesia, pre-existing deficit, seizure, tingling, tremors, weakness, other Hematologic/Lymphatic: Reports: anemia Allergies: Coded Allergies: ACETAMINOPHEN (Verified Allergy, Unknown, 01/19/18) HYDROCODONE (Verified Allergy, Unknown, 01/19/18) Subjective No acute events. No fever or chills. Objective Last 24 Hour Vital Signs Date Time Temp Pulse Resp B/P (MAP) Pulse Ox O2 Delivery O2 Flow Rate FiO2 01/23/18 22:10 150/96 01/23/18 21:24 72 159/91 01/23/18 20:00 75 01/23/18 20:00 97.0 72 18 159/91 95 Room Air 97.0 01/23/18 16:00 69 01/23/18 16:00 97.5 67 18 140/83 97 Room Air 97.5 01/23/18 15:00 144/91 01/23/18 12:00 77 01/23/18 12:00 97.5 73 19 138/87 96 Room Air 97.5 01/23/18 10:13 69 144/91 01/23/18 10:12 69 144/91 01/23/18 08:00 78 01/23/18 08:00 97.5 69 19 144/91 96 Room Air 97.5 01/23/18 04:00 72 01/23/18 00:00 74 01/23/18 00:00 97.3 75 18 152/90 97 Room Air 97.3 Intake and Output 01/22/18 01/23/18 19:00 07:00 Intake Total 900 ml 200 ml Output Total 250 ml Balance 650 ml 200 ml Intake Oral 900 ml 200 ml Output Urine Total 250 ml # Voids 1 Laboratory Tests 01/23/18 13:20: Sodium Level 136, Potassium Level 5.0, Chloride Level 107, Carbon Dioxide Level 16L, Anion Gap 13, Blood Urea Nitrogen 102H, Creatinine 4.7H, Estimat Glomerular Filtration Rate 10.6, Glucose Level 112H, Calcium Level 6.8L, Total Bilirubin 0.2, Aspartate Amino Transf (AST/SGOT) 14L, Alanine Aminotransferase ( ALT/SGPT) 14, Alkaline Phosphatase 62, Total Protein 5.2L, Albumin 2.6L, Globulin 2.6, Albumin/Globulin Ratio 1.0 Height (Feet): 4 Height (Inches): 11.00 Weight (Pounds): 110 General Appearance: no apparent distress Respiratory/Chest: decreased breath sounds Abdomen: soft Agapito Street MD Jan 23, 2018 23:54
[2018-01-24] MEDS: Mycophenolate 250mg cap ORAL SCH ×2 (06:34→17:55)
[2018-01-24 08:08] LABS: HEMATOCRIT 23.1 % (37.0-47.0); HEMOGLOBIN 8.1 G/DL (12.0-16.0); MEAN CORPUSCULAR VOLUME 82 FL (80-99); PLATELET COUNT 92 K/UL (150-450); RED BLOOD COUNT 2.83 M/UL (4.20-5.40); RED CELL DISTRIBUTION WIDTH 13.4 % (11.6-14.8); WHITE BLOOD COUNT 7.4 K/UL (4.8-10.8)
[2018-01-24 08:28] LABS: ALANINE AMINOTRANSFERASE 11 U/L (12-78); ALBUMIN 2.6 G/DL (3.4-5.0); ALBUMIN/GLOBULIN RATIO 0.9 (1.0-2.7); ALKALINE PHOSPHATASE 59 U/L (46-116); ANION GAP 14 mmol/L (5-15); ASPARTATE AMINO TRANSFERASE 17 U/L (15-37); BILIRUBIN,TOTAL 0.3 MG/DL (0.2-1.0); BLOOD UREA NITROGEN 103 mg/dL (7-18); CALCIUM 7.2 MG/DL (8.5-10.1); CARBON DIOXIDE 17 MMOL/L (21-32); CHLORIDE 105 MMOL/L (98-107); CREATININE 4.5 MG/DL (0.55-1.30); POTASSIUM 5.2 MMOL/L (3.5-5.1); SODIUM 136 MMOL/L (136-145)
--- NOTE | 2018-01-24 08:46 | Cardiology Report ---
APPROVED REPORT EXAM: Two-dimensional and M-mode echocardiogram with Doppler and color Doppler. INDICATION Tachycardia M-Mode DIMENSIONS IVSd1.9 (0.7-1.1cm)Left Atrium (MM)3.4 (1.6-4.0cm) LVDd5.8 (3.5-5.6cm)Aortic Root3.5 (2.0-3.7cm) PWd1.6 (0.7-1.1cm)Aortic Cusp Exc.1.9 (1.5-2.0cm) LVDs4.0 (2.5-4.0cm) PWs2.2 cm Normal left ventricular chamber size, systolic function and wall motion. Left ventricular ejection fraction estimated to be 55 %. Significant left ventricular hypertrophy. Small circumferential pericardial effusion. Possible large posterior pleural effusion. Significant left atrial enlargement. Right cardiac chamber sizes are within normal limits. Normal appearing aortic, mitral, pulmonic and tricuspid valves. Mild mitral annulus and aortic root calcification. IVC dilated at 2.3 cm with physiologic collapse suggestive of increased RA pressure. A color flow and spectral Doppler study was performed and revealed: Trace to mild aortic regurgitation. Moderate mitral regurgitation. Mitral diastolic velocities suggest reduced left ventricular relaxation c/w mild LV diastolic dysfunction (Grade I). Mild to moderate tricuspid regurgitation. Tricuspid systolic velocities suggests peak right ventricular systolic pressure of 48 mmHg, consistent with moderate pulmonary hypertension. Trace pulmonic regurgitation present.
[2018-01-24] MEDS: Docusate 100mg cap ORAL SCH ×4 (09:00→17:52)
[2018-01-24] MEDS: Renagel 400mg cap ORAL SCH ×2 (09:00→09:32)
[2018-01-24] MEDS: Lactobacillus-GG tablet ORAL SCH ×4 (09:00→17:53)
[2018-01-24] MEDS: Sodium Citrate 30ml ORAL SCH ×2 (09:00→09:29)
[2018-01-24] MEDS: Carvedilol 25mg Tab ORAL SCH (09:30)
--- NOTE | 2018-01-24 09:45 | Nephrology Progress Note ---
Assessment/Plan Assessment 1. Acute on chronic renal failure, the etiologies of acute renal failure are including ATN due to hypertensive urgency. 2. 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 Accelerated hypertension. 4. Rule out active lupus. 5.MADAI 6.Acidosis 7.anemia of CKD Plan plan continue bicitra continue Renvela continue epogen spoke to her and her boyfriend regarding need for dialysis for possible uremic symptom in detail spoke to them regarding treatment with steroid at this point she refused also she refused renal biopsy dialysis and other treatment she requesting to receive only albumin i explained to her in detail about the need for above treatment she understood the risk of refusing treatment awaiting for rheumatology consult Subjective Subjective alert and wake c/o fatigue and decrease her appetite overall feeling better today her boyfriend in her bedside Objective Objective Last 24 Hour Vital Signs Date Time Temp Pulse Resp B/P (MAP) Pulse Ox O2 Delivery O2 Flow Rate FiO2 01/24/18 09:30 75 161/101 01/24/18 06:33 161/101 01/24/18 04:00 75 01/24/18 00:00 75 01/23/18 22:10 150/96 01/23/18 21:24 72 159/91 01/23/18 20:00 75 01/23/18 20:00 97.0 72 18 159/91 95 Room Air 97.0 01/23/18 16:00 69 01/23/18 16:00 97.5 67 18 140/83 97 Room Air 97.5 01/23/18 15:00 144/91 01/23/18 12:00 77 01/23/18 12:00 97.5 73 19 138/87 96 Room Air 97.5 01/23/18 10:13 69 144/91 01/23/18 10:12 69 144/91 Intake and Output 01/23/18 01/24/18 19:00 07:00 Intake Total 116 ml 300 ml Balance 116 ml 300 ml Intake Oral 116 ml 300 ml # Voids 2 Laboratory Tests 01/23/18 13:20: Sodium Level 136, Potassium Level 5.0, Chloride Level 107, Carbon Dioxide Level 16L, Anion Gap 13, Blood Urea Nitrogen 102H, Creatinine 4.7H, Estimat Glomerular Filtration Rate 10.6, Glucose Level 112H, Calcium Level 6.8L, Total Bilirubin 0.2, Aspartate Amino Transf (AST/SGOT) 14L, Alanine Aminotransferase ( ALT/SGPT) 14, Alkaline Phosphatase 62, Total Protein 5.2L, Albumin 2.6L, Globulin 2.6, Albumin/Globulin Ratio 1.0 01/24/18 07:20: Sodium Level 136, Potassium Level 5.2H, Chloride Level 105, Carbon Dioxide Level 17L, Anion Gap 14, Blood Urea Nitrogen 103H, Creatinine 4.5H, Estimat Glomerular Filtration Rate 11.2, Glucose Level 107H, Calcium Level 7.2L, Total Bilirubin 0.3, Aspartate Amino Transf (AST/SGOT) 17, Alanine Aminotransferase ( ALT/SGPT) 11L, Alkaline Phosphatase 59, Total Protein 5.6L, Albumin 2.6L, Globulin 3.0, Albumin/Globulin Ratio 0.9L, White Blood Count 7.4, Red Blood Count 2.83L, Hemoglobin 8.1L, Hematocrit 23.1L, Mean Corpuscular Volume 82, Mean Corpuscular Hemoglobin 28.8, Mean Corpuscular Hemoglobin Concent 35.2, Red Cell Distribution Width 13.4, Platelet Count 92L, Mean Platelet Volume 5.5L, Neutrophils (%) (Auto) , Lymphocytes (%) (Auto) , Monocytes (%) (Auto) , Eosinophils (%) (Auto) , Basophils (%) (Auto) , Neutrophils % (Manual) [Pending] , Lymphocytes % (Manual) [Pending], Platelet Estimate [Pending], Platelet Morphology [Pending] Height (Feet): 4 Height (Inches): 11.00 Weight (Pounds): 110 Objective HEAD AND NECK: No JVP. No LAD. No thyromegaly. Extraocular movements are intact. Pupils are reactive to light and accommodation. LUNGS: She has decreased breathing sounds on both sides. CARDIAC: Regular rate and rhythm. S1, S2. No murmur. No rub. ABDOMEN: Soft, nontender, and nondistended. Positive ascites causing shifting dullness. EXTREMITIES: A 1+ to 2+ edema. No clubbing. No cyanosis. FATIMAH DAWSON Jan 24, 2018 09:45
--- NOTE | 2018-01-24 10:49 | GI Progress Note ---
Assessment/Plan Problems: (1) Anemia ICD Codes: D64.9 - Anemia, unspecified SNOMED: 527658540 (2) Ascites ICD Codes: R18.8 - Other ascites SNOMED: 087471960 (3) Renal failure ICD Codes: N19 - Unspecified kidney failure SNOMED: 81831734 Status: unchanged Status Narrative Discussed with Dr. Graham. Assessment/Plan Assessment (1) Anemia (2) Ascites (3) SOB (shortness of breath) (4) Renal failure (5) Bloating Plan defer paracentesis at this time renal diet with 2L fluid / sodium restriction prn transfusions fu nephro recs, labs ambulate and sleep on side Subjective Gastrointestinal/Abdominal: Reports: abdominal pain Objective Last 24 Hour Vital Signs Date Time Temp Pulse Resp B/P (MAP) Pulse Ox O2 Delivery O2 Flow Rate FiO2 01/24/18 09:30 75 161/101 01/24/18 06:33 161/101 01/24/18 04:00 75 01/24/18 00:00 75 01/23/18 22:10 150/96 01/23/18 21:24 72 159/91 01/23/18 20:00 75 01/23/18 20:00 97.0 72 18 159/91 95 Room Air 97.0 01/23/18 16:00 69 01/23/18 16:00 97.5 67 18 140/83 97 Room Air 97.5 01/23/18 15:00 144/91 01/23/18 12:00 77 01/23/18 12:00 97.5 73 19 138/87 96 Room Air 97.5 Intake and Output 01/23/18 01/24/18 19:00 07:00 Intake Total 116 ml 300 ml Balance 116 ml 300 ml Intake Oral 116 ml 300 ml # Voids 2 Laboratory Tests Test 01/23/18 13:20 01/24/18 07:20 Sodium Level 136 MMOL/L (136-145) 136 MMOL/L (136-145) Potassium Level 5.0 MMOL/L (3.5-5.1) 5.2 MMOL/L (3.5-5.1) H Chloride Level 107 MMOL/L (98-107) 105 MMOL/L (98-107) Carbon Dioxide Level 16 MMOL/L (21-32) L 17 MMOL/L (21-32) L Anion Gap 13 mmol/L (5-15) 14 mmol/L (5-15) Blood Urea Nitrogen 102 mg/dL (7-18) H 103 mg/dL (7-18) H Creatinine 4.7 MG/DL (0.55-1.30) H 4.5 MG/DL (0.55-1.30) H Estimat Glomerular Filtration Rate 10.6 mL/min (>60) 11.2 mL/min (>60) Glucose Level 112 MG/DL (74-106) H 107 MG/DL (74-106) H Calcium Level 6.8 MG/DL (8.5-10.1) L 7.2 MG/DL (8.5-10.1) L Total Bilirubin 0.2 MG/DL (0.2-1.0) 0.3 MG/DL (0.2-1.0) Aspartate Amino Transf (AST/SGOT) 14 U/L (15-37) L 17 U/L (15-37) Alanine Aminotransferase (ALT/SGPT) 14 U/L (12-78) 11 U/L (12-78) L Alkaline Phosphatase 62 U/L (46-116) 59 U/L (46-116) Total Protein 5.2 G/DL (6.4-8.2) L 5.6 G/DL (6.4-8.2) L Albumin 2.6 G/DL (3.4-5.0) L 2.6 G/DL (3.4-5.0) L Globulin 2.6 g/dL 3.0 g/dL Albumin/Globulin Ratio 1.0 (1.0-2.7) 0.9 (1.0-2.7) L White Blood Count 7.4 K/UL (4.8-10.8) Red Blood Count 2.83 M/UL (4.20-5.40) L Hemoglobin 8.1 G/DL (12.0-16.0) L Hematocrit 23.1 % (37.0-47.0) L Mean Corpuscular Volume 82 FL (80-99) Mean Corpuscular Hemoglobin 28.8 PG (27.0-31.0) Mean Corpuscular Hemoglobin Concent 35.2 G/DL (32.0-36.0) Red Cell Distribution Width 13.4 % (11.6-14.8) Platelet Count 92 K/UL (150-450) L Mean Platelet Volume 5.5 FL (6.5-10.1) L Neutrophils (%) (Auto) % (45.0-75.0) Lymphocytes (%) (Auto) % (20.0-45.0) Monocytes (%) (Auto) % (1.0-10.0) Eosinophils (%) (Auto) % (0.0-3.0) Basophils (%) (Auto) % (0.0-2.0) Differential Total Cells Counted 100 Neutrophils % (Manual) 70 % (45-75) Lymphocytes % (Manual) 20 % (20-45) Monocytes % (Manual) 3 % (1-10) Eosinophils % (Manual) 7 % (0-3) H Basophils % (Manual) 0 % (0-2) Band Neutrophils 0 % (0-8) Platelet Estimate Decreased L Platelet Morphology Normal Anisocytosis 1+ Height (Feet): 4 Height (Inches): 11.00 Weight (Pounds): 110 General Appearance: WD/WN, no apparent distress, alert Cardiovascular: normal rate Respiratory/Chest: normal breath sounds, no respiratory distress Abdominal Exam: normal bowel sounds, non tender, soft Extremities: normal range of motion, non-tender Jacinda Viramontes N.P. Jan 24, 2018 10:49
--- NOTE | 2018-01-24 11:18 | Internal Med Progress Note ---
Subjective Date of Service: Jan 24, 2018 Physician Name Juve Dubois Attending Physician Hamzah Skelton MD Current Medications Medications (Trade) Dose Ordered Sig/Gisella Route PRN Reason Start Time Stop Time Status Last Admin Dose Admin Acetaminophen (Tylenol) 650 mg Q6H PRN ORAL Mild Pain/Temp > 100.5 01/19/18 00:15 02/18/18 00:14 01/20/18 22:13 Acetaminophen/ Hydrocodone Bitart ([employer] [facility] 5/325) 1 tab Q6H PRN ORAL Moderate Pain (Pain Scale 4-6) 01/19/18 00:15 01/26/18 00:14 Albumin Human 50 ml @ 50 mls/hr BID IV 01/21/18 18:00 01/24/18 17:59 01/24/18 09:28 Amlodipine Besylate (Norvasc) 10 mg DAILY ORAL 01/21/18 11:15 02/20/18 11:14 01/23/18 10:13 Carvedilol (Coreg) 25 mg EVERY 12 HOURS ORAL 01/21/18 21:00 02/19/18 09:59 01/24/18 09:30 Clonidine HCl (Catapres Tab) 0.3 mg EVERY 8 HOURS ORAL 01/21/18 22:00 02/19/18 21:59 01/24/18 06:33 Clonidine HCl (Catapres tab) 0.2 mg Q2H PRN ORAL SBP>170 01/20/18 13:00 02/19/18 12:59 01/21/18 09:28 Docusate Sodium (Colace) 100 mg THREE TIMES A DAY ORAL 01/20/18 13:00 02/19/18 12:59 01/23/18 18:36 Epoetin Shan (Procrit (for non ESRD use)) 10,000 units WED-WED-WED SUBQ 01/21/18 21:00 02/20/18 20:59 01/21/18 21:39 Furosemide (Lasix) 40 mg BID IV 01/21/18 19:00 01/24/18 18:59 01/24/18 09:29 Hydroxychloroquine Sulfate (Plaquenil) 200 mg TWICE A DAY ORAL 01/19/18 09:00 02/18/18 08:59 01/23/18 18:37 Lactobacillus Acidophilus (Culturelle) 1 tab THREE TIMES A DAY ORAL 01/21/18 13:00 02/20/18 12:59 01/23/18 18:37 Lansoprazole (Prevacid) 30 mg DAILY ORAL 01/20/18 17:15 02/19/18 17:14 01/23/18 09:00 Mycophenolate Mofetil (Cellcept) 1,000 mg Q12HR@0630,1830 ORAL 01/21/18 20:00 02/20/18 19:59 01/24/18 06:34 Ondansetron HCl (Zofran) 4 mg Q4HR PRN IVP Nausea & Vomiting 01/19/18 00:15 02/18/18 00:14 Sevelamer HCl (Renagel) 800 mg THREE TIMES A DAY ORAL 01/21/18 13:00 02/20/18 12:59 01/23/18 18:37 Simethicone (Mylicon) 80 mg QID PRN ORAL GAS PAIN 01/21/18 11:00 02/20/18 10:59 Sodium Citrate (Bicitra) 30 ml EVERY 12 HOURS ORAL 01/21/18 21:00 02/20/18 20:59 01/23/18 21:24 Allergies: Coded Allergies: ACETAMINOPHEN (Verified Allergy, Unknown, 01/19/18) HYDROCODONE (Verified Allergy, Unknown, 01/19/18) ROS Limited/Unobtainable: No Constitutional: Reports: no symptoms HEENT: Reports: no symptoms Cardiovascular: Reports: no symptoms Respiratory: Reports: no symptoms Gastrointestinal/Abdominal: Reports: no symptoms Genitourinary: Reports: no symptoms Neurologic/Psychiatric: Reports: no symptoms Subjective 32 YO F admitted with severe anemia and lupus flare. Cover for Int Med-Dr Skelton. Await rheumatology consult. Objective Last Vital Signs Date Time Temp Pulse Resp B/P (MAP) Pulse Ox O2 Delivery O2 Flow Rate FiO2 01/24/18 09:30 75 161/101 01/23/18 20:00 97.0 18 95 Room Air 97.0 Laboratory Tests Test 01/23/18 13:20 01/24/18 07:20 Sodium Level 136 MMOL/L (136-145) 136 MMOL/L (136-145) Potassium Level 5.0 MMOL/L (3.5-5.1) 5.2 MMOL/L (3.5-5.1) H Chloride Level 107 MMOL/L (98-107) 105 MMOL/L (98-107) Carbon Dioxide Level 16 MMOL/L (21-32) L 17 MMOL/L (21-32) L Anion Gap 13 mmol/L (5-15) 14 mmol/L (5-15) Blood Urea Nitrogen 102 mg/dL (7-18) H 103 mg/dL (7-18) H Creatinine 4.7 MG/DL (0.55-1.30) H 4.5 MG/DL (0.55-1.30) H Estimat Glomerular Filtration Rate 10.6 mL/min (>60) 11.2 mL/min (>60) Glucose Level 112 MG/DL (74-106) H 107 MG/DL (74-106) H Calcium Level 6.8 MG/DL (8.5-10.1) L 7.2 MG/DL (8.5-10.1) L Total Bilirubin 0.2 MG/DL (0.2-1.0) 0.3 MG/DL (0.2-1.0) Aspartate Amino Transf (AST/SGOT) 14 U/L (15-37) L 17 U/L (15-37) Alanine Aminotransferase (ALT/SGPT) 14 U/L (12-78) 11 U/L (12-78) L Alkaline Phosphatase 62 U/L (46-116) 59 U/L (46-116) Total Protein 5.2 G/DL (6.4-8.2) L 5.6 G/DL (6.4-8.2) L Albumin 2.6 G/DL (3.4-5.0) L 2.6 G/DL (3.4-5.0) L Globulin 2.6 g/dL 3.0 g/dL Albumin/Globulin Ratio 1.0 (1.0-2.7) 0.9 (1.0-2.7) L White Blood Count 7.4 K/UL (4.8-10.8) Red Blood Count 2.83 M/UL (4.20-5.40) L Hemoglobin 8.1 G/DL (12.0-16.0) L Hematocrit 23.1 % (37.0-47.0) L Mean Corpuscular Volume 82 FL (80-99) Mean Corpuscular Hemoglobin 28.8 PG (27.0-31.0) Mean Corpuscular Hemoglobin Concent 35.2 G/DL (32.0-36.0) Red Cell Distribution Width 13.4 % (11.6-14.8) Platelet Count 92 K/UL (150-450) L Mean Platelet Volume 5.5 FL (6.5-10.1) L Neutrophils (%) (Auto) % (45.0-75.0) Lymphocytes (%) (Auto) % (20.0-45.0) Monocytes (%) (Auto) % (1.0-10.0) Eosinophils (%) (Auto) % (0.0-3.0) Basophils (%) (Auto) % (0.0-2.0) Differential Total Cells Counted 100 Neutrophils % (Manual) 70 % (45-75) Lymphocytes % (Manual) 20 % (20-45) Monocytes % (Manual) 3 % (1-10) Eosinophils % (Manual) 7 % (0-3) H Basophils % (Manual) 0 % (0-2) Band Neutrophils 0 % (0-8) Platelet Estimate Decreased L Platelet Morphology Normal Anisocytosis 1+ Intake and Output 01/23/18 01/24/18 19:00 07:00 Intake Total 116 ml 300 ml Balance 116 ml 300 ml Intake Oral 116 ml 300 ml # Voids 2 Objective General Appearance: WD/WN, no apparent distress, alert EENT: PERRL/EOMI, normal ENT inspection Neck: non-tender, normal alignment, supple, normal inspection Cardiovascular: normal peripheral pulses, normal rate, regular rhythm, no gallop/murmur, no JVD Respiratory/Chest: chest wall non-tender, lungs clear, normal breath sounds, no respiratory distress, no accessory muscle use Abdomen: normal bowel sounds, non tender, soft, no organomegaly, no mass Extremities: normal range of motion, non-tender Edema: trace edema 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 Continue coreg; D/C diltiazem. Start norvasc per cardiology. Continue PRN clonidine. See cardiology note. (2) SOB (shortness of breath) (3) Ascites Assessment & Plan: Small amount. Await GI consult. (4) Systemic lupus erythematosus Assessment & Plan: Await Rheumatology consult-Dr Kohler notified (5) Severe anemia Assessment & Plan: S/P Transfusion 1 unit PRBC 01/20/18-see heme note. (6) Elevated troponin Assessment & Plan: Due to renal failure. See cardiology note. (7) Renal failure Assessment & Plan: See 2nd nephrology consult (8) Hyperkalemia Status: not improved JUVE DUBOIS Jan 24, 2018 11:18
[2018-01-24 12:00] VITALS: BP 165/98
--- NOTE | 2018-01-24 16:06 | Cardiac Electrophysiology PN ---
Assessment/Plan Assessment/Plan 1. Troponin leak. Due to renal failure and severe anemia. Denies any chest pain or shortness of breath. Continue Coreg 25 mg b.i.d. 2. Accelerated hypertension, likely due to renal failure. On Coreg 25 bid, Clonidine 0.3 tid and Lasix 40 iv bid. DC Norvasc as she is refusing to take it. Echocardiogram Nl EF. 3. Hyperkalemia due to renal failure. 4. Renal failure. Getting worse. BUN 100, Cr 4.6 5. Severe anemia. S/P one unit of blood transfusion. Hb 8.2 6. SLE, Rheumatology consult pending DW RN and boyfriend at bedside. Subjective Subjective Feeling better. Refused Norvasc again. Getting Albumin 25%. DC planning home today Objective Last 24 Hour Vital Signs Date Time Temp Pulse Resp B/P (MAP) Pulse Ox O2 Delivery O2 Flow Rate FiO2 01/24/18 13:15 165/99 01/24/18 12:00 78 01/24/18 12:00 97.3 19 165/98 99 Room Air 97.3 01/24/18 09:30 75 161/101 01/24/18 08:00 71 01/24/18 06:33 161/101 01/24/18 04:00 75 01/24/18 00:00 75 01/23/18 22:10 150/96 01/23/18 21:24 72 159/91 01/23/18 20:00 75 01/23/18 20:00 97.0 72 18 159/91 95 Room Air 97.0 Intake and Output 01/23/18 01/24/18 19:00 07:00 Intake Total 116 ml 300 ml Balance 116 ml 300 ml Intake Oral 116 ml 300 ml # Voids 2 Laboratory Tests Test 01/24/18 07:20 White Blood Count 7.4 K/UL (4.8-10.8) Red Blood Count 2.83 M/UL (4.20-5.40) L Hemoglobin 8.1 G/DL (12.0-16.0) L Hematocrit 23.1 % (37.0-47.0) L Mean Corpuscular Volume 82 FL (80-99) Mean Corpuscular Hemoglobin 28.8 PG (27.0-31.0) Mean Corpuscular Hemoglobin Concent 35.2 G/DL (32.0-36.0) Red Cell Distribution Width 13.4 % (11.6-14.8) Platelet Count 92 K/UL (150-450) L Mean Platelet Volume 5.5 FL (6.5-10.1) L Neutrophils (%) (Auto) % (45.0-75.0) Lymphocytes (%) (Auto) % (20.0-45.0) Monocytes (%) (Auto) % (1.0-10.0) Eosinophils (%) (Auto) % (0.0-3.0) Basophils (%) (Auto) % (0.0-2.0) Differential Total Cells Counted 100 Neutrophils % (Manual) 70 % (45-75) Lymphocytes % (Manual) 20 % (20-45) Monocytes % (Manual) 3 % (1-10) Eosinophils % (Manual) 7 % (0-3) H Basophils % (Manual) 0 % (0-2) Band Neutrophils 0 % (0-8) Platelet Estimate Decreased L Platelet Morphology Normal Anisocytosis 1+ Sodium Level 136 MMOL/L (136-145) Potassium Level 5.2 MMOL/L (3.5-5.1) H Chloride Level 105 MMOL/L (98-107) Carbon Dioxide Level 17 MMOL/L (21-32) L Anion Gap 14 mmol/L (5-15) Blood Urea Nitrogen 103 mg/dL (7-18) H Creatinine 4.5 MG/DL (0.55-1.30) H Estimat Glomerular Filtration Rate 11.2 mL/min (>60) Glucose Level 107 MG/DL (74-106) H Calcium Level 7.2 MG/DL (8.5-10.1) L Total Bilirubin 0.3 MG/DL (0.2-1.0) Aspartate Amino Transf (AST/SGOT) 17 U/L (15-37) Alanine Aminotransferase (ALT/SGPT) 11 U/L (12-78) L Alkaline Phosphatase 59 U/L (46-116) Total Protein 5.6 G/DL (6.4-8.2) L Albumin 2.6 G/DL (3.4-5.0) L Globulin 3.0 g/dL Albumin/Globulin Ratio 0.9 (1.0-2.7) L Objective HEAD AND NECK: No JVD. LUNGS: Clear. CARDIOVASCULAR: Regular S1 and S2 with no gallop or murmur. ABDOMEN: Soft and nontender. EXTREMITIES: No pitting edema. Alfred Kennedy MD Jan 24, 2018 16:06
[2018-01-24 17:53] VITALS: BP 188/107
[2018-01-24] MEDS: cloNIDine 0.2mg Tab ORAL PRN (17:53)
--- NOTE | 2018-01-24 23:53 | General Progress Note ---
Assessment/Plan Assessment/Plan 1. Anemia of chronic disease. --> Anemia workup reviewed. Iron 35, TIBC 162, Vit B12 162, Folate 12.5 --> Hemoglobin goal above 7. --> Blood transfusion not required unless symptomatic or hgb >7 2. Leukopenia. --> HIV/Hepatitis panel negative --> S/P Abd US: Small gallbladder polyps. Negative for gallstones or dilated ducts. --> Trace ascites. Small bilateral pleural effusions. Increased bilateral renal echogenicity, may indicate medical renal disease. 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 Elevated troponin. Closely monitor. Consider Cardiology evaluation. 4. Thrombocytopenia. Again, consider hepatitis panel and HIV and abdominal ultrasound. --> HIV/Hep panel negative 5. Hypomagnesemia as well as hyperphosphatemia. Obtain BMP. Check the patient' s creatinine to see if there is any evidence of kidney disease. 6. Elevated D-dimer, potentially due to creatinine elevation. Continue to obtain BMP. 7. Hypertension, currently is on Coreg. Continue every 12 hours as needed. --> BP currently elevated 8. Elevated lupus, currently is on Plaquenil as well as Myfortic. Continue to monitor. explain thrombocytopenia as well as anemia. 9. Appreciate consultation. Subjective Date patient seen: Jan 24, 2018 Constitutional: Denies: no symptoms, chills, diaphoresis, fever, malaise, weakness, other HEENT: Denies: no symptoms, eye pain, blurred vision, tearing, double vision, ear pain, ear discharge, nose pain, nose congestion, throat pain, throat swelling, mouth pain, mouth swelling, other Cardiovascular: Denies: no symptoms, chest pain, edema, irregular heart rate, lightheadedness, palpitations, syncope, other Respiratory: Denies: no symptoms, cough, orthopnea, shortness of breath, SOB with excertion, SOB at rest, sputum, stridor, wheezing, other Gastrointestinal/Abdominal: Denies: no symptoms, abdomen distended, abdominal pain, black stools, tarry stools, blood in stool, constipated, diarrhea, difficulty swallowing, nausea, poor appetite, poor fluid intake, rectal bleeding , vomiting, other Genitourinary: Denies: no symptoms, burning, discharge, frequency, flank pain, hematuria, incontinence, pain, urgency, other Neurologic/Psychiatric: Denies: no symptoms, anxiety, depressed, emotional problems, headache, numbness, paresthesia, pre-existing deficit, seizure, tingling, tremors, weakness, other Hematologic/Lymphatic: Reports: anemia Allergies: Coded Allergies: ACETAMINOPHEN (Verified Allergy, Unknown, 01/19/18) HYDROCODONE (Verified Allergy, Unknown, 01/19/18) Subjective Hypertensive. Afebrile. Objective Last 24 Hour Vital Signs Date Time Temp Pulse Resp B/P (MAP) Pulse Ox O2 Delivery O2 Flow Rate FiO2 01/24/18 17:53 188/107 01/24/18 13:15 165/99 01/24/18 12:00 78 01/24/18 12:00 97.3 19 165/98 99 Room Air 97.3 01/24/18 09:30 75 161/101 01/24/18 08:00 71 01/24/18 06:33 161/101 01/24/18 04:00 75 01/24/18 00:00 75 Intake and Output 01/23/18 01/24/18 19:00 07:00 Intake Total 116 ml 300 ml Balance 116 ml 300 ml Intake Oral 116 ml 300 ml # Voids 2 Laboratory Tests 01/24/18 07:20: White Blood Count 7.4, Red Blood Count 2.83L, Hemoglobin 8.1L, Hematocrit 23.1L , Mean Corpuscular Volume 82, Mean Corpuscular Hemoglobin 28.8, Mean Corpuscular Hemoglobin Concent 35.2, Red Cell Distribution Width 13.4, Platelet Count 92L, Mean Platelet Volume 5.5L, Neutrophils (%) (Auto) , Lymphocytes (%) ( Auto) , Monocytes (%) (Auto) , Eosinophils (%) (Auto) , Basophils (%) (Auto) , Differential Total Cells Counted 100, Neutrophils % (Manual) 70, Lymphocytes % ( Manual) 20, Monocytes % (Manual) 3, Eosinophils % (Manual) 7H, Basophils % ( Manual) 0, Band Neutrophils 0, Platelet Estimate DecreasedL, Platelet Morphology Normal, Anisocytosis 1+, Sodium Level 136, Potassium Level 5.2H, Chloride Level 105, Carbon Dioxide Level 17L, Anion Gap 14, Blood Urea Nitrogen 103H, Creatinine 4.5H, Estimat Glomerular Filtration Rate 11.2, Glucose Level 107H, Calcium Level 7.2L, Total Bilirubin 0.3, Aspartate Amino Transf (AST/SGOT ) 17, Alanine Aminotransferase (ALT/SGPT) 11L, Alkaline Phosphatase 59, Total Protein 5.6L, Albumin 2.6L, Globulin 3.0, Albumin/Globulin Ratio 0.9L Height (Feet): 4 Height (Inches): 11.00 Weight (Pounds): [address] MD Jan 24, 2018 23:53
--- NOTE | 2018-01-27 10:55 | Discharge Summary ---
Discharge Summary Hospital Course Date of Admission Jan 18, 2018 at 20:20 Date of Discharge Jan 24, 2018 at 20:12 Admitting Diagnosis HPI Sunita Robbins is a 32 year old female who was admitted on Jan 18, 2018 at 20:20 for Anemia,Hyperkalemia Hospital Course dc summary #[id number] Discharge Discharge Disposition Patient signed AMA Discharge Instructions Discharge Instructions Special Instructions I have been assigned to complete a D/C Summary on this account. I was not involved in the patient management Lisa Hamlin NP (Vanchtein) Jan 27, 2018 10:55
--- NOTE | 2018-01-28 04:17 | Discharge Summary 2 SIG ---
DATE OF ADMISSION: 01/18/2018 DATE OF SIGNING AGAINST MEDICAL ADVISE: 01/24/2018 REASON FOR ADMISSION: 32 years old female with past medical history significant for hypertension, systemic lupus erythematosus, anemia, and lupus nephritis, presented initially to [facility] with complaint of shortness of breath for three weeks. Prior to [place], she was in [facility] and found to have hemoglobin of 5. The patient left against medical advice from that hospital and she came to [facility]. Upon arrival, the patient was found to be in renal failure, had hemoglobin 5, potassium 7. The patient was given Kayexalate. Hyperkalemia presumed to be secondary to renal failure. The patient was transfused with one unit of packed red blood cells at [facility] and transferred to [facility] for insurance purposes. The patient was admitted with diagnoses of anemia, hyperkalemia, renal failure, systemic lupus erythematosus and hypertension. CONSULTANTS: housecleaner- Dr. Garnett, second opinion- Dr. Garcia; vehicle modification technician- Dr. Street; GI -Dr. Sorto; mechanical service specialist - Dr. Kennedy. HOSPITAL STAY: The patient admitted to telemetry floor. Box Sealing Machine Feeder seen and evaluated the patient. According to housecleaner, the patient had likely acute on chronic renal failure. Baseline creatinine 2.5 from [facility]. The patient also had lupus nephritis. Box Sealing Machine Feeder had long discussion with the patient and her boyfriend regarding further treatment and care. Per housecleaner, need to stabilize renal function. Blood pressure was not controlled. She received hydralazine. The patient refused to take the full dose of Kayexalate. She initially demanded the steroid treatment, however, it was not clear if it was the active lupus relapse and nephritis. Urinalysis with protein +4. Second opinion of housecleaner was requested, who recommended and started the patient on Renvela, Bicitra, and Epogen. Box Sealing Machine Feeder explained to the patient and her boyfriend regarding need for dialysis for possible uremic symptom. The patient was explained regarding treatment with steroids, which she later declined. She declined renal biopsy and she declined dialysis. All treatments that were offered to her she declined, she only requested to receive albumin. The patient understood the risk of refusing treatment. Rheumatology consult was requested and was pending. Electrolytes were closely monitored and replaced as needed. Nephrotoxins were avoided. The patient received a total of one unit of packed red blood cells and declined a second one. Prior to signing against medical advice, hemoglobin 8.1 and hematocrit 23.1. Potassium was 5.6 on admission and then 5.2 prior to signing against medical advice. Creatinine high- 4.5. Blood pressure was not controlled. Cardiology consult was requested. Also noted elevated troponin. According to mechanical service specialist, elevated troponin was likely due to troponin leak secondary to renal failure and severe anemia. In terms of the blood pressure control, mechanical service specialist recommended beta-derick, clonidine, Lasix and Norvasc, however, the patient declined Norvasc. Norvasc was stopped. The patient was continued on beta-derick, clonidine and Lasix. MARCUS screen was positive as well as the double-stranded DNA antibody. C3, C4 and total complement CH 50 were low, all consistent with clinical picture of the systemic lupus erythematosus. The patient noted to be with leukopenia and thrombocytopenia. Insurance Producer suggested to rule out liver disease. Hepatitis panel was negative. HIV screen test was negative. Abdominal ultrasound revealed no evidence of gallstones or dilated ducts. Normal echogenicity of liver, however, it demonstrated increased bilateral renal echogenicity indicative of medical renal disease. Echocardiogram revealed normal left ventricular chamber size, systolic function and wall motion. Ejection fraction was estimated to be 55% with significant left ventricular hypertrophy. Significant left atrial enlargement, small circumferential pericardial effusion, right ventricular systolic pressure of 48 consistent with moderate pulmonary hypertension, moderate mitral regurgitation, [id number] tricuspid regurgitation. Leukopenia resolved, which was initially present in [place]. The patient was still with thrombocytopenia, on day of signing against medical advice platelets 92. Stool for occult blood was negative. Anemia workup was consistent with anemia of chronic disease. The patient decided to sign against medical advice. The risks and consequences of signing against medical advice were discussed with the patient. The patient verbalized understanding, signed the form and left. FINAL DIAGNOSES: 1. Acute on chronic renal failure, probably acute tubular necrosis, secondary to hypertensive urgency. 2. Hypertensive urgency. 3. Hyperkalemia secondary to renal failure. 4. 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 5. Severe anemia requiring blood transfusion. 6. Anemia of chronic kidney disease. 7. Elevated troponin due to troponin leak secondary to renal failure and severe anemia. 8. Systemic lupus erythematosus. 9. Noncompliance. Hamzah Skelton M.D. I have been assigned to dictate discharge summary on this account and I was not involved in the patient's management. Lisa Hamlin (Vanchtein) NShanePShane DR: EDWINA JOB#: [id number] CC: EMA
--- NOTE | 2018-01-28 08:56 | Diagnostic Imaging Report ---
APPROVED REPORT CPT Code: 87689 Present Symptoms Comments: BILATERAL LEGS PAIN BILATERAL: Imaging reveals a patent deep venous system bilaterally. There is no evidence of thrombus within the femoral, popliteal or tibial segments. The greater saphenous veins are also within normal limits. Doppler indicates normal spontaneous flow within these segments.
== END 2018-01-24 20:12 | disposition left against medical advice (07) | DRG 808 ==
LOC: 2E 20:20
PROC: 30233N1 Transfusion of Nonautologous Red Blood Cells into Peripheral Vein, Percutaneous Approach (ICD-10-PCS; principal; 2018-01-20)
DX: D59.1 Other autoimmune hemolytic anemias (principal); N17.0 Acute kidney failure with tubular necrosis; R18.8 Other ascites; E87.2 Acidosis; I16.1 Hypertensive emergency; D69.6 Thrombocytopenia, unspecified; M32.9 Systemic lupus erythematosus, unspecified; E83.42 Hypomagnesemia; E87.5 Hyperkalemia; Z88.6 Allergy status to analgesic agent; E83.39 Other disorders of phosphorus metabolism; Z91.14 Patient's other noncompliance with medication regimen; I12.9 Hypertensive chronic kidney disease with stage 1 through stage 4 chronic kidney disease, or unspecified chronic kidney disease; N18.9 Chronic kidney disease, unspecified
CPT/HCPCS: 36415; 76700; 80048; 80053; 80061; 81001; 82043; 82044; 82270; 82550; 82553; 82570; 82607; 82728; 82746; 82977; 83010; 83036; 83540; 83550; 83615; 83735; 83880; 83921; 84100; 84238; 84300; 84443; 84484; 84550; 85007; 85025; 85044; 85060; 85379; 85384; 85610; 85651; 85730; 86039; 86140; 86160; 86162; 86225; 86703; 86705; 86709; 86803; 86850; 86870; 86900; 86901; 86904; 86920; 87340; 89050; 93306; 93970